=== PATIENT | male | born 1965 | race Caucasian/White ===

== ENCOUNTER 2017-03-23 05:14 | Inpatient (IN) | payer BC, OTHER ==
[2017-03-21 13:43] VITALS: BMI 35.0
--- NOTE | 2017-03-21 14:25 | PAT Medication Instructions ---
Service Date Mar 21, 2017. Current Home Medication List Acetaminophen/Codeine (Tylenol W/Codeine #3), 1-2 TAB PO Q4-6H Albuterol Sulfate (Proair Respiclick), 2 PUFFS INH PRN Aspirin (Aspirin Ec), 81 MG PO QAM Baclofen (Lioresal), 10 MG PO PRN Hydrocodone/Acetaminophen 5MG/325MG ([place] 5MG/325MG), 1 TABLET PO PRN PRN for Pain Hydrocodone/Acetaminophen 5MG/325MG ([place] 5MG/325MG), 1 TABLET PO Q6H PRN for N Loratadine (Claritin), 10 MG PO QAM Losartan Potassium (Cozaar), 50 MG PO QAM Magnesium Oxide (Mag-Ox), 400 MG PO BID Mometasone Furoate-Formoterol (Dulera 100/5 Mcg), 2 PUFFS INH BID Montelukast Sodium (Montelukast Sodium), 1 TAB PO QAM Multivitamin (Multivitamin), 1 TAB PO QAM Potassium Chloride (K-Tabs), 20 MEQ PO BID Medication Instructions For Your Scheduled Surgery - Last dose of Plavix was 03/18/17 per patient. Per patient, told by vascular that he no longer needs to be on Plavix indefinitely. - Hold the following medications the morning of surgery: Baclofen (Lioresal), 10 MG PO PRN Loratadine (Claritin), 10 MG PO QAM Losartan Potassium (Cozaar), 50 MG PO QAM Magnesium Oxide (Mag-Ox), 400 MG PO BID Montelukast Sodium (Montelukast Sodium), 1 TAB PO QAM Multivitamin (Multivitamin), 1 TAB PO QAM Potassium Chloride (K-Tabs), 20 MEQ PO BID - Take the following medications the morning of surgery with a sip of water: Mometasone Furoate-Formoterol (Dulera 100/5 Mcg), 2 PUFFS INH BID Hydrocodone/Acetaminophen 5MG/325MG ([place] 5MG/325MG), 1 TABLET PO PRN PRN for Pain (okay to take up to 4 hours prior to surgery if needed) Hydrocodone/Acetaminophen 5MG/325MG ([place] 5MG/325MG), 1 TABLET PO Q6H PRN for N (okay to take up to 4 hours prior to surgery if needed) Acetaminophen/Codeine (Tylenol W/Codeine #3), 1-2 TAB PO Q4-6H (okay to take up to 4 hours prior to surgery if needed) Albuterol Sulfate (Proair Respiclick), 2 PUFFS INH PRN (if needed) Aspirin (Aspirin Ec), 81 MG PO QAM (okay to continue per surgeon) - Take the following medications as scheduled the night before surgery: Potassium Chloride (K-Tabs), 20 MEQ PO BID Mometasone Furoate-Formoterol (Dulera 100/5 Mcg), 2 PUFFS INH BID Magnesium Oxide (Mag-Ox), 400 MG PO BID Hydrocodone/Acetaminophen 5MG/325MG ([place] 5MG/325MG), 1 TABLET PO PRN PRN for Pain (if needed) Hydrocodone/Acetaminophen 5MG/325MG ([place] 5MG/325MG), 1 TABLET PO Q6H PRN for N (if needed) Acetaminophen/Codeine (Tylenol W/Codeine #3), 1-2 TAB PO Q4-6H (if needed) Baclofen (Lioresal), 10 MG PO PRN (if needed) Albuterol Sulfate (Proair Respiclick), 2 PUFFS INH PRN (if needed) If you have any questions please call us at [phone] or [phone] or [phone]
--- NOTE | 2017-03-21 15:04 | DIAGNOSTIC IMAGING REPORT ---
CHEST 2 VIEWS ROUTINE HISTORY: Preop. COMPARISON: None. FINDINGS: The lungs are clear. Cardiac silhouette is normal in size. No pleural effusions. No pneumothorax. IMPRESSION: No acute process. Electronically signed by: Simone Villavicencio M.D. 03/21/2017 3:03 PM Dictated Date/Time: 03/21/2017 2:58 PM
[2017-03-21 15:34] LABS: BASO % 0.3 %; BASO ABS # 0.02 K/uL (0-0.2); EOS % 6.3 %; EOS ABS # 0.45 K/uL (0-0.5); HEMATOCRIT 44.4 % (42-52); HEMOGLOBIN 15.2 g/dL (14.0-18.0); IG# 0.02 K/uL (0.00-0.02); LYMPH ABS # 2.01 K/uL (1.2-3.4); MEAN CELL VOLUME 93.7 fL (80-100); MEAN CORPUSCULAR HEMOGLOBIN 32.1 pg (25-34); MEAN CORPUSCULAR HGB CONC 34.2 g/dl (32-36); MEAN PLATELET VOLUME 9.6 fL (7.4-10.4); MONO % 10.2 %; MONO ABS # 0.73 K/uL (0.11-0.59); NEUT % 54.9 %; NEUT ABS # 3.94 K/uL (1.4-6.5); PLATELET COUNT 312 K/uL (130-400); RED CELL DISTRIBUTION WIDTH CV 12.4 % (11.5-14.5); RED CELL DISTRIBUTION WIDTH SD 42.7 fL (36.4-46.3); WHITE BLOOD COUNT 7.17 K/uL (4.8-10.8)
[2017-03-21 15:45] LABS: INR 0.9 (0.9-1.1); PTT PATIENT 23.1 SECONDS (21.0-31.0)
[2017-03-21 16:41] LABS: ALBUMIN 3.7 gm/dl (3.4-5.0); CALCIUM 9.1 mg/dl (8.5-10.1); CREATININE 1.09 mg/dl (0.60-1.40); POTASSIUM 3.8 mmol/L (3.5-5.1)
[2017-03-21 16:42] LABS: TOTAL PROTEIN 7.7 gm/dl (6.4-8.2)
--- NOTE | 2017-03-22 14:24 | History and Physical ---
History & Physical Date Mar 22, 2017. Chief Complaint RIGHT FEMORAL NECK STRESS FRACTURE History of Present Illness The patient is a 51 year old male with complaints of right hip and back pain. Patient was being evaluated by his PCP earlier in February. He had an MRI of his hip which revealed a right femoral neck stress fracture. Patient has been non weightbearing and is now scheduled for percutaneous pinning of the right hip. He is currently on Plavix for renal stents and did take a dose on Monday , Dr. Beckett is aware. Patient is currently ambulating with crutches. He rates his pain a 6/10. Past Medical/Surgical History MVP HTN Hypercholesterolemia Sleep apnea, with cPAP Renal artery stenosis Renal artery stent Right shoulder x 2 Cholecystectomy ACDF Denies CAD, DM, DVT Additional History Hepatic Disease: No Endocrine Disorder: No Kidney Disease: No Hypertension: Yes Heart Disease: No Bleeding Tendencies: No Infectious Diseases: No Allergies Coded Allergies: Amoxicillin (Verified Allergy, Unknown, RASH, 03/21/17) Clavulanic Acid (Verified Allergy, Unknown, RASH, 03/21/17) Home Medications Scheduled Acetaminophen/Codeine (Tylenol W/Codeine #3), 1-2 TAB PO Q4-6H Albuterol Sulfate (Proair Respiclick), 2 PUFFS INH PRN Aspirin (Aspirin Ec), 81 MG PO QAM Baclofen (Lioresal), 10 MG PO PRN Loratadine (Claritin), 10 MG PO QAM Losartan Potassium (Cozaar), 50 MG PO QAM Magnesium Oxide (Mag-Ox), 400 MG PO BID Mometasone Furoate-Formoterol (Dulera 100/5 Mcg), 2 PUFFS INH BID Montelukast Sodium (Montelukast Sodium), 1 TAB PO QAM Multivitamin (Multivitamin), 1 TAB PO QAM Potassium Chloride (K-Tabs), 20 MEQ PO BID Scheduled PRN Hydrocodone/Acetaminophen 5MG/325MG ([place] 5MG/325MG), 1 TABLET PO PRN PRN for Pain Hydrocodone/Acetaminophen 5MG/325MG ([place] 5MG/325MG), 1 TABLET PO Q6H PRN for N Physical Examination Skin: warm/dry, no rash Eyes: normal inspection, EOMI, sclerae normal ENT: normal ENT inspection, pharynx normal Head: normocephalic, atraumatic Neck: supple, no adenopathy, trachea midline Respiratory/Chest: lungs clear, normal breath sounds, no respiratory distress Cardiovascular: regular rate, rhythm, no edema, no murmur Abdomen / GI: normal bowel sounds, non tender Back: normal inspection Extremities: normal inspection, + pertinent finding (ROM painful, no distal edema. NV intact, antalgic gait) Neurologic/Psych: no motor/sensory deficits, alert, normal reflexes, oriented x 3 Diagnosis RIGHT FEMORAL NECK STRESS FRACTURE. Plan of Treatment PATIENT WILL BE ADMITTED FOR PERCUTANEOUS PINNING RIGHT FEMORAL NECK. PATIENT HAS HISTORY OF NONCOMPLIANCE, WILL NEED CLOSE MONITORING AND EDUCATION POST OP. WILL NOT NEED TO RESUME PLAVIX. HE WAS INSTRUCTED BEFORE TO STOP ANTICOAGULATION BC IT HAS BEEN 6 MONTHS SINCE HIS STENT.
[~2017-03-23] VITALS: Ht 177.8 cm; Wt 110.8 kg
[2017-03-23] VITALS (8 sets, daily range): BP systolic 122–166; BP diastolic 64–93; PULSE 56–78; TEMP 36.7–36.8; O2SAT 95–98; Ht 177.8 cm; Wt 110.8 kg
[~2017-03-23 05:14] MED LIST: ACET300T3 PO; ALBU18002 INH; ASPI81TA28 PO; BACL10TA PO; CLR10 PO; HYDR-5688 PO; LOSA50TA6 PO; MAGN400T6 PO; MOME100A INH; MONT1TAB5 PO; MULT-506 PO; POTA10TA PO
[2017-03-23] MEDS ORDERED: ACETAMINOPHEN 500 MG TAB PO SCH (06:00)
[2017-03-23] MEDS ORDERED: CeleBREX 200 MG CAP PO SCH (06:00)
[2017-03-23] MEDS ORDERED: CEFAZOLIN 2000MG IV PUSH 10 ML IV SCH (06:00)
[2017-03-23] MEDS ORDERED: LACTATED RINGER'S 1000ML 1,000 ML IV SCH (06:00)
[2017-03-23] MEDS ORDERED: METOCLOPRAMIDE HCL 10 MG TAB PO SCH (06:00)
[2017-03-23] MEDS ORDERED: DEXAMETHASONE 4 MG TAB PO SCH (06:00)
[2017-03-23] MEDS ORDERED: CLOP1TAB15 PO (06:05)
[2017-03-23] MEDS ORDERED: BUPIVACAINE 0.5 % 5 MG/1 ML PF 10ML VIAL ONE (06:29)
[2017-03-23] MEDS ORDERED: BUPIVACAINE 0.5 % 5 MG/1 ML MPF 30ML VIAL ONE (06:32)
[2017-03-23] MEDS ORDERED: FENTANYL CITRATE INJ 50 MCG/1 ML 2 ML VIAL ONE ×2 (06:42→07:46)
[2017-03-23] MEDS ORDERED: MIDAZOLAM HCL 1 MG/ML 2ML VIAL ONE (06:42)
--- NOTE | 2017-03-23 06:48 | History & Physical Bridge Note ---
H&P Re-Evaluation Bridge Note: I have examined the patient, reviewed the History & Physical and in the interval since the performance of the History & Physical I have noted the following changes of clinical significance: No changes noted
[2017-03-23] MEDS ORDERED: ATROPINE SULFATE 0.1 MG/ML 5ML SYR IV PRN (07:00)
[2017-03-23] MEDS ORDERED: LABETALOL HCL IV 5 MG/ML 20ML IV PRN (07:00)
[2017-03-23] MEDS ORDERED: KETOROLAC TROMETHAMINE 30 MG/ML VIAL IV. PRN (07:00)
[2017-03-23] MEDS ORDERED: ONDANSETRON INJ 2 MG/ML 2 ML VIAL IV PRN ×2 (07:00→08:30)
[2017-03-23] MEDS ORDERED: GLYCOPYRROLATE INJ 0.2 MG/ML VIAL ONE (07:45)
[2017-03-23] MEDS ORDERED: ONDANSETRON INJ 2 MG/ML 2 ML VIAL ONE (07:45)
[2017-03-23] MEDS ORDERED: NEOSTIGMINE METHYLSULFATE 5 MG/5 ML SYR ONE (07:45)
[2017-03-23] MEDS ORDERED: PROPOFOL IV EMULSION 10 MG/ML 20 ML VIAL IV ONE (07:45)
[2017-03-23] MEDS ORDERED: DEXAMETHASONE SOD INJ 4 MG/ML VIAL ONE (07:45)
[2017-03-23] MEDS ORDERED: LIDOCAINE HCL 2% 2 ML VIAL (20MG/ML) ONE (07:45)
[2017-03-23] MEDS ORDERED: ROCURONIUM BROMIDE 10 MG/ML 5 ML VIAL IV ONE (08:19)
--- NOTE | 2017-03-23 08:27 | [facility] Post Operative Brief Note ---
Immediate Operative Summary Operative Date Mar 23, 2017. Pre-Operative Diagnosis Fracture Neck of Right Femur Post-Operative Diagnosis Same as preop Procedure(s) Performed Right Hip Percutaneous Pinning Surgeon Dr. Beckett Surgery Aid Surgeon(s) none Estimated Blood Loss 25 ML Findings see dictated op note Fluids (cc crystalloids) 1200 Specimens None per Surgeon Drains none Anesthesia general Complication(s) None Disposition Recovery Room / PACU
[2017-03-23] MEDS ORDERED: NON-FORMULARY MEDICATION (Albuterol Sulfate (Proair Respiclick) 2 PUFFS) INH SCH (08:30)
[2017-03-23] MEDS ORDERED: OXYCODONE HCL IR 5 MG TAB (IMMEDIATE RELEASE) PO PRN (08:30)
[2017-03-23] MEDS ORDERED: MoRPHine SULFATE 4 MG/ML 1 ML CARP\\VIAL IV PRN (08:30)
[2017-03-23] MEDS: HYDROmorphone INJ 1 MG/ML SYR IV PRN ×2 (09:01→09:09)
--- NOTE | 2017-03-23 09:03 | DIAGNOSTIC IMAGING REPORT ---
R PELVIS/UNILATERAL HIP 1 VIEW CLINICAL HISTORY: IN PACU - A/P PELVIS and LATERAL HIP INCLUDING ALL OF IMPLANT COMPARISON: None. DISCUSSION: Anatomic alignment status post right hip pinning. 3 hip pins appear to be placed appropriately. There is no evidence for soft tissue swelling. IMPRESSION: Anatomic alignment status post right hip pinning The above report was generated using voice recognition software. It may contain grammatical, syntax or spelling errors. Electronically signed by: David Chen M.D. 03/23/2017 9:02 AM Dictated Date/Time: 03/23/2017 9:00 AM
--- NOTE | 2017-03-23 09:42 | DIAGNOSTIC IMAGING REPORT ---
R HIP OR FILMS CLINICAL HISTORY: RT PERCUTANEOUS PINNING. Right hip fracture. COMPARISON STUDY: None. FLUOROSCOPY TIME: 1 minute and 59 seconds. FINDINGS: 2 fluoroscopic spot images of the right hip demonstrate 3 cannulated screws within the right femoral neck. The hardware is intact. The alignment is anatomic. IMPRESSION: Fluoroscopy provided for right hip pinning. Electronically signed by: Simone Villavicencio M.D. 03/23/2017 9:40 AM Dictated Date/Time: 03/23/2017 9:40 AM
--- NOTE | 2017-03-23 10:56 | Anesthesiology Progress Note ---
Anesthesia Post Op Note Date & Time Mar 23, 2017 at 10:56 Vital Signs Pain Intensity: 4 Vital Signs Past 12 Hours Date Time Temp Pulse Resp B/P (MAP) Pulse Ox O2 Delivery O2 Flow Rate FiO2 03/23/17 10:40 67 18 146/84 (104) 98 Nasal Cannula 2.0 03/23/17 10:10 56 16 146/93 (110) 97 Nasal Cannula 2.0 03/23/17 09:25 36.4 48 12 112/76 96 Nasal Cannula 2 03/23/17 09:15 47 13 130/82 97 Nasal Cannula 2 03/23/17 09:05 48 14 132/83 97 Nasal Cannula 2 03/23/17 08:55 54 16 111/95 97 Oxymask 10 03/23/17 08:45 47 18 147/75 100 Oxymask 10 03/23/17 08:37 36.1 60 20 128/93 100 Oxymask 10 03/23/17 05:49 36.7 60 18 166/92 97 Room Air Notes Mental Status: alert / awake / arousable, participated in evaluation Pt Amnestic to Procedure: Yes Nausea / Vomiting: adequately controlled Pain: adequately controlled Airway Patency, RR, SpO2: stable & adequate BP & HR: stable & adequate Hydration State: stable & adequate Anesthetic Complications: no major complications apparent
--- NOTE | 2017-03-23 11:26 | Orthopedic Progress Note ---
Orthopedic Progress Note Date of Service Mar 23, 2017. Subjective Additional Notes: Postop progress note Patient doing well, comfortable, pain well controlled, no acute issues. Objective Right lower extremity NVSI, positive EHL/FHL/TA/GS, SILT grossly, dressing clean dry and intact, compartments soft nontender. SCDs in place. Date Time Temp Pulse Resp B/P (MAP) Pulse Ox O2 Delivery O2 Flow Rate FiO2 03/23/17 10:40 67 18 146/84 (104) 98 Nasal Cannula 2.0 03/23/17 10:10 56 16 146/93 (110) 97 Nasal Cannula 2.0 03/23/17 09:25 36.4 48 12 112/76 96 Nasal Cannula 2 03/23/17 09:15 47 13 130/82 97 Nasal Cannula 2 03/23/17 09:05 48 14 132/83 97 Nasal Cannula 2 03/23/17 08:55 54 16 111/95 97 Oxymask 10 03/23/17 08:45 47 18 147/75 100 Oxymask 10 03/23/17 08:37 36.1 60 20 128/93 100 Oxymask 10 03/23/17 05:49 36.7 60 18 166/92 97 Room Air Assessment & Plan Assessment: S/P percutaneous pinning of the right hip -Ancef x 24 -DVT ppx - restart patients home plavix -PWB RLE with crutches/walker -PT/OT --Pain controlled -DC planing - Home POD1 -PO XR - implants well aligned, well fixed, no new fractures or dislocation
[2017-03-23] MEDS: LOSARTAN POTASSIUM 50 MG TAB PO SCH (11:40)
[2017-03-23] MEDS: MULTIVITAMIN TAB PO SCH (11:42)
[2017-03-23] MEDS ORDERED: CLB200 PO (11:47)
[2017-03-23] MEDS ORDERED: SENN-61 PO (11:47)
[2017-03-23] MEDS ORDERED: ONDA-170 PO (11:47)
[2017-03-23] MEDS ORDERED: ASPEC325 PO ×2 (11:47→11:50)
[2017-03-23] MEDS ORDERED: RXC5 PO (11:47)
[2017-03-23] MEDS ORDERED: ACET-24 PO (11:47)
--- NOTE | 2017-03-23 11:49 | Discharge Instructions ---
Discharge Instructions Date of Service Mar 23, 2017. Admission Reason for Admission: Fracture Of Unspecified Part Of Neck Of Right Femu Discharge Discharge Diagnosis / Problem: sp percutaneous pinning right femur Discharge Goals Goal(s): Decrease discomfort, Improve function, Increase independence Activity Recommendations Activity Limitations: per Instructions/Follow-up section . Instructions / Follow-Up Instructions / Follow-Up [facility] DISCHARGE INSTRUCTIONS: HIP FRACTURE SELF CARE INSTRUCTIONS: A. You are to ambulate with a walker or crutches for approximately 6 weeks. B. You are 50% PARTIAL WEIGHT BEARING on your operative lower extremity for at least 6 weeks. C. Wear low heeled shoes with non-slip soles D. Be sure that your floors are free of things that could trip you throw rugs, electrical cords, and small objects. Avoid wet and waxed floors, especially with crutches/walker/cane. E. Try to walk several times a day with rest periods between. F. You may shower 48 hours after surgery and get the incision area wet, but DO NOT soak or submerge incision area in water. (No baths, swimming pools, hot tubs ) G. Standard alia/no adhesive- Please keep incision clean and dry. You may shower. [place] should be removed in 10-14 days at the office. This appointment is likely already scheduled for you. Please call if any increased redness, drainage, or swelling. H. Do NOT apply soap or any ointment/lotions directly over incision. I. You may use ice as needed to operative site. SPECIAL CARE INSTRUCTIONS: VERY IMPORTANT TO READ AND REVIEW A. You may be at risk for phlebitis or blood clots. a. Wear surgical stockings (SIVA hose) for 2 weeks after surgery to improve circulation and reduce swelling. b. Take ASPIRIN 325 mg BID for 4 weeks or as directed. This is your blood thinner. c. If you are on Coumadin- you will have daily/weekly blood work to monitor your levels. This will be done by either your family physician/ director pharmacy services (if you are on Coumadin chronically) versus your orthopedic surgeon. Expect a phone call the day of or the day after your blood work is drawn to adjust your dose accordingly. B. There are a few signs you need to watch for after you are home. Call [facility] [place] at [phone] if you experience any of the following: a. If you have a temperature of 101 degrees or higher. b. Sudden increase in pain in your hip not relieved by rest or pain medication. c. Any fluid or drainage from the incision; redness of the incision. d. Shortness of breath or chest pain. B. Please call [facility] at [phone] if you have any questions or concerns about your operation or recovery. C. Call your physician if: a. Temperature is greater than 101 degrees (F). b. Pain is not relieved by prescribed pain medications. c. Increase drainage or redness from incision. d. Unanswered questions or concerns. D. Pain Medication: a. You will be prescribed pain medication upon discharge that should last till your first post-operative appointment. b. If you experience nausea and/or skin rash, discontinue this medication and contact our office for an alternative medication. c. Caution- narcotic pain medication can cause constipation. FOLLOW UP VISIT: Please call [facility] at [phone] to schedule a follow up appointment 10-14 days from the date of your surgery date. Current Hospital Diet Patient's current hospital diet: Regular Diet Discharge Diet Recommended Diet: Regular Diet Procedures Procedures Performed: Right Hip Percutaneous Pinning Pending Studies Studies pending at discharge: no Medical Emergencies . Who to Call and When: Medical Emergencies: If at any time you feel your situation is an emergency, please call 911 immediately. . Non-Emergent Contact Non-Emergency issues call your: Surgeon . "Provider Documentation" section prepared by Marsha Euceda. . VTE Core Measure Inpt VTE Proph given/why not?: Other Anticoagulation, T.E.D. Stockings, SCD's
[2017-03-23] MEDS: SODIUM CHLORIDE 0.9% 1000ML 1,000 ML IV SCH ×2 (13:10→23:50)
[2017-03-23] MEDS: CEFAZOLIN IV 2,000 MG in SYRINGE 0 ML IV SCH ×2 (13:39→21:57)
[2017-03-23] MEDS ORDERED: NURSING VERBAL MED ORDER ONE ×2 (14:00→21:15)
[2017-03-23] MEDS ORDERED: CEFAZOLIN IV 2,000 MG in DEXTROSE 5% 50ML 50 ML IV SCH (14:00)
[2017-03-23] MEDS: ACETAMINOPHEN 500 MG TAB PO SCH ×2 (15:33→23:52)
--- NOTE | 2017-03-23 16:56 | [facility] Operative Report ---
Operative Report Operative Date Mar 23, 2017. Pre-Operative Diagnosis Fracture Neck of Right Femur Post-Operative Diagnosis Same as preop Procedure(s) Performed Right Hip Percutaneous Pinning Surgeon Dr. Beckett Refrigerator Tester Surgeon(s) none Estimated Blood Loss 25 ML Findings see dictated op note Fluids 1200 Specimens None per Surgeon Drains none Anesthesia general Complication(s) None Disposition Recovery Room / PACU Indications The patient is a 51-year-old male who sustained a mechanical fall from standing height 3 weeks prior to admission and subsequently was seen for delayed presentation for right hip femoral neck stress fracture in the outpatient setting. I indicated the patient for a right hip percutaneous pinning. The patient was informed of the risks and benefits of surgery, which included but not limited to infection, bleeding, blood clots, damage to nerves, vessels, bone and soft tissue, dislocation, leg length discrepancy, need for additional surgery, nonunion, malunion, displacement of the fracture and . The patient chose to move forward with surgical intervention and informed consent was obtained. Description of Procedure The patient was identified, brought to the operating room, and placed in supine position on the table. After induction of general anesthesia, the patient was positioned on a fracture table. Imaging was obtained utilizing C-arm fluoroscopy of the right hip to assess hip position and version. No reduction was needed. The right hip was then sterilely prepped and draped in the usual fashion for the surgery. A timeout was performed with site cooper confirmation and preoperative antibiotics given. Once again under C-arm fluoroscopy a guide pin was inserted percutaneously and positioned in the inferior neck and femoral head while assessed in both the AP and lateral planes. When satisfactory position was confirmed a small direct lateral incision of the right hip around the guide pin was made. Dissection was carried down to the femur through the IT band and the vastus lateralis was elevated off the bone. Adequate hemostasis was achieved with electrocautery. Next under direct visualization with C-arm fluoroscopy we then used the pin guide to place two additional pins in the anterior superior and posterior superior positions. Each guide pin was measured for appropriate screw length and overdrilled using the cannulated drill bit while utilizing C-arm fluoroscopy to confirm no pin migration had occurred. Three 7.3 16 thread cannulated screws measure 110, 95 and 100mm were then placed under C-arm fluoroscopy into the femoral head with excellent fixation. The guide pins were removed at this time and final images were obtained utilizing C-arm fluoroscopy. Once this was done and the fixation was solid, the wound was irrigated with copious amounts of sterile saline solution. We then closed in layers using 1 Vicryl, 2-0 Vicryl, and alia for the skin. Sterile xeroform, 4x4, tegaderm dressing was applied. The patient was extubated in the OR , tolerated the procedure well and was taken to the PACU in stable condition. I attest to the content of the Intraoperative Record and any orders documented therein. Any exceptions are noted below.
[2017-03-23] MEDS: ASPIRIN 325 MG ECTAB PO SCH (20:54)
[2017-03-23] MEDS: DOCUSATE SODIUM 100 MG CAP PO SCH (20:54)
[2017-03-23] MEDS: POTASSIUM CHLORIDE 20 MEQ TABCR PO SCH (20:54)
[2017-03-23] MEDS: OXYCODONE HCL 10 MG TABCR (OXYCONTIN) PO SCH (20:55)
[2017-03-23] MEDS ORDERED: SENNA 8.6 MG TAB PO SCH (21:00)
[2017-03-24 03:19] VITALS: BP 125/71; PULSE 57; TEMP 36.7; O2SAT 97
[2017-03-24 05:47] LABS: BASO % 0.1 %; BASO ABS # 0.01 K/uL (0-0.2); HEMATOCRIT 36.7 % (42-52); HEMOGLOBIN 12.4 g/dL (14.0-18.0); IG# 0.07 K/uL (0.00-0.02); LYMPH % 7.8 %; LYMPH ABS # 1.47 K/uL (1.2-3.4); MEAN CELL VOLUME 95.8 fL (80-100); MEAN CORPUSCULAR HEMOGLOBIN 32.4 pg (25-34); MEAN CORPUSCULAR HGB CONC 33.8 g/dl (32-36); MEAN PLATELET VOLUME 9.5 fL (7.4-10.4); MONO % 7.8 %; MONO ABS # 1.47 K/uL (0.11-0.59); NEUT % 83.9 %; NEUT ABS # 15.93 K/uL (1.4-6.5); PLATELET COUNT 254 K/uL (130-400); RED CELL DISTRIBUTION WIDTH CV 12.8 % (11.5-14.5); RED CELL DISTRIBUTION WIDTH SD 43.9 fL (36.4-46.3); WHITE BLOOD COUNT 18.95 K/uL (4.8-10.8)
[2017-03-24 06:32] LABS: CALCIUM 8.7 mg/dl (8.5-10.1); CREATININE 1.26 mg/dl (0.60-1.40); POTASSIUM 4.4 mmol/L (3.5-5.1)
[2017-03-24] MEDS: SODIUM CHLORIDE 0.9% 1000ML 1,000 ML IV SCH (06:46)
--- NOTE | 2017-03-24 06:51 | Orthopedic Progress Note ---
Orthopedic Progress Note Date of Service Mar 24, 2017. Subjective Additional Notes: Patient seen in bed this morning, comfortable, denies pain, denies F/V/N/V/SOB/ CP, no acute issues overnight Objective Right lower extremity NVSI, positive EHL/FHL/TA/GS, SILT grossly, dressing clean dry and intact, compartments soft nontender. SCDs in place. Date Time Temp Pulse Resp B/P (MAP) Pulse Ox O2 Delivery O2 Flow Rate FiO2 03/24/17 03:19 36.7 57 16 125/71 (89) 97 Room Air 03/23/17 23:30 Room Air 03/23/17 23:07 36.8 61 14 134/73 (93) 97 Room Air 03/23/17 19:15 36.8 78 18 122/64 (83) 95 Room Air 03/23/17 15:33 Room Air 03/23/17 14:38 36.8 76 16 157/75 (102) 95 Room Air 03/23/17 12:40 69 16 143/80 (101) 97 Room Air 03/23/17 11:38 36.7 68 12 152/93 (112) 96 Room Air 03/23/17 10:40 67 18 146/84 (104) 98 Nasal Cannula 2.0 03/23/17 10:10 56 13 146/93 (110) 97 Nasal Cannula 2.0 03/23/17 10:10 56 16 146/93 (110) 97 Nasal Cannula 2.0 03/23/17 09:40 Nasal Cannula 2.0 03/23/17 09:40 Nasal Cannula 03/23/17 09:25 36.4 48 12 112/76 96 Nasal Cannula 2 03/23/17 09:15 47 13 130/82 97 Nasal Cannula 2 03/23/17 09:05 48 14 132/83 97 Nasal Cannula 2 03/23/17 08:55 54 16 111/95 97 Oxymask 10 03/23/17 08:45 47 18 147/75 100 Oxymask 10 03/23/17 08:37 36.1 60 20 128/93 100 Oxymask 10 Laboratory Results 24 Hours: Test 03/24/17 05:19 White Blood Count 18.95 K/uL Red Blood Count 3.83 M/uL Hemoglobin 12.4 g/dL Hematocrit 36.7 % Mean Corpuscular Volume 95.8 fL Mean Corpuscular Hemoglobin 32.4 pg Mean Corpuscular Hemoglobin Concent 33.8 g/dl Platelet Count 254 K/uL Mean Platelet Volume 9.5 fL Neutrophils (%) (Auto) 83.9 % Lymphocytes (%) (Auto) 7.8 % Monocytes (%) (Auto) 7.8 % Eosinophils (%) (Auto) 0.0 % Basophils (%) (Auto) 0.1 % Neutrophils # (Auto) 15.93 K/uL Lymphocytes # (Auto) 1.47 K/uL Monocytes # (Auto) 1.47 K/uL Eosinophils # (Auto) 0.00 K/uL Basophils # (Auto) 0.01 K/uL Prothromb Time International Ratio 1.0 Prothrombin Time 10.2 SECONDS Assessment & Plan Assessment: S/P percutaneous pinning of the right hip POD#1 -Ancef x 24 -DVT ppx - restart patients home plavix -PWB RLE with crutches/walker, 50% weight bearing -PT/OT --Pain controlled -Am labs HGB 12.4 -DC planing - Home today 03/24/17 -PO XR - implants well aligned, well fixed, no new fractures or dislocation
[2017-03-24 07:19] VITALS: BP 144/84; PULSE 56; TEMP 36.7; O2SAT 95
--- NOTE | 2017-03-24 07:53 | NUR ---
Case Management: Met with pt at bedside. Pt reports he lives with his who is able to assist him at home. Pt reports being independent with ADLs and ambulation. States he used crutches prior to this admission and plans to use crutches on discharge. When I asked pt his home set up he reports he owns four homes and he goes between all four homes. I asked the home set up of the home he plans to stay upon discharge and pt was uncertain which home. Reports homes are two story and he can access home without steps. Reports he can remain on the first floor in his homes. Pt denies discharge needs. Case Management to follow.
--- NOTE | 2017-03-24 08:13 | Anesthesiology Progress Note ---
Anesthesia Post Op Note Date & Time Mar 24, 2017 at 08:12 Vital Signs Pain Intensity: 0.0 Vital Signs Past 12 Hours Date Time Temp Pulse Resp B/P (MAP) Pulse Ox O2 Delivery O2 Flow Rate FiO2 03/24/17 07:19 36.7 56 18 144/84 (104) 95 Room Air 03/24/17 03:19 36.7 57 16 125/71 (89) 97 Room Air 03/23/17 23:30 Room Air 03/23/17 23:07 36.8 61 14 134/73 (93) 97 Room Air Notes Mental Status: alert / awake / arousable, participated in evaluation Pt Amnestic to Procedure: Yes Nausea / Vomiting: adequately controlled Pain: adequately controlled Airway Patency, RR, SpO2: stable & adequate BP & HR: stable & adequate Hydration State: stable & adequate Anesthetic Complications: no major complications apparent
[2017-03-24] MEDS: DOCUSATE SODIUM 100 MG CAP PO SCH (08:35)
[2017-03-24] MEDS: ACETAMINOPHEN 500 MG TAB PO SCH (08:35)
[2017-03-24] MEDS: ASPIRIN 325 MG ECTAB PO SCH (08:36)
[2017-03-24] MEDS: LOSARTAN POTASSIUM 50 MG TAB PO SCH (08:36)
[2017-03-24] MEDS: MULTIVITAMIN TAB PO SCH (08:37)
[2017-03-24] MEDS: POTASSIUM CHLORIDE 20 MEQ TABCR PO SCH (08:37)
[2017-03-24] MEDS: OXYCODONE HCL 10 MG TABCR (OXYCONTIN) PO SCH (08:38)
[2017-03-24 08:51] VITALS: BP 144/84; PULSE 56; TEMP 36.7; O2SAT 95
[2017-03-24] MEDS ORDERED: CLOPIDOGREL BISULFATE 75 MG TAB PO SCH (09:00)
[2017-03-24] MEDS ORDERED: APIXABAN 2.5 MG TAB PO SCH (09:00)
--- NOTE | 2017-03-24 10:35 | NUR ---
The patient has demonstrated progress toward goals and readiness for discharge as demonstrated by: A&O x4. VSS. RA. OOB independently to bathroom- voiding without difficulty in urinal. Tolerating a regular diet. Ambulating in hallways with use of crutches- patient is to be 50% weight-bearing on right leg; no compliant with weight bearing status. "I have been walking on this leg (right leg) for weeks; I will be fine" Patient escorted to car with a volunteer to be discharged. Able to shower independently. 4x4r with opsite to right thigh. discharge plans are to go home; patient is to follow-up with out patient PT.
--- NOTE | 2017-03-31 08:17 | DISCHARGE SUMMARY ---
DISCHARGE DIAGNOSIS: Stress fracture, right femoral neck. SECONDARY DIAGNOSES: Hypertension and obesity. CONSULTS: None. COMPLICATIONS: None. PROCEDURE: The patient underwent a prophylactic percutaneous pinning of the right femur with Dr. Beckett on 03/23/2017. BRIEF HISTORY: Please see previously dictated history and physical. HOSPITAL COURSE: The patient was admitted on 03/23/2017 for a percutaneous pinning of his right femoral neck fracture. The patient tolerated the procedure well. He was resting comfortably postoperatively. Vital signs were stable. He was afebrile. Dressings were clean, dry and intact. He was neurovascularly intact. Calves were soft and nontender. SCDs were in place. On postop day #1, the patient was doing well. He was resting comfortably in his bed. He denies pain. Vital signs were stable. He was afebrile. Dressing was clean, dry and intact. He was neurovascularly intact. Calves were soft and nontender. SCDs were in place. The patient's hemoglobin was 12.4. He began physical therapy per protocol. He was started on aspirin 325 mg b.i.d. for DVT prophylaxis. He is 50% weightbearing with crutches versus walker. He was discharged home with home physical therapy later that day in stable condition. For further review please see the chart. Lab, x-ray data and discharge instructions as per chart.
[2017-09-02] MEDS ORDERED: IBUP-1450 PO (10:33)
[2017-09-02] MEDS ORDERED: LANS30CA12 PO (10:33)
[2017-09-02] MEDS ORDERED: DOCU100C31 PO (10:33)
[2017-09-02] MEDS ORDERED: MOME100A INH (10:33)
[2017-09-02] MEDS ORDERED: PROM12.57 PO (10:33)
[2017-09-02] MEDS ORDERED: ASPI81CH2 PO (10:33)
[2017-09-02] MEDS ORDERED: ATOR-26 PO (10:33)
[2017-09-04] MEDS ORDERED: ATV5 PO (13:09)
[2017-09-04] MEDS ORDERED: ANT25 PO (13:09)
== END 2017-03-24 10:39 | disposition home or self-care (01) | DRG 482 ==
LOC: C.ACU 05:14 → EEVIPCON 05:14 → C.3E 08:37 → ENRESERV 09:13
PROVIDERS: ADMIT Orthopaedic Surgery; ATTEND Orthopaedic Surgery
PROC: 0QH634Z Insertion of Internal Fixation Device into Right Upper Femur, Percutaneous Approach (ICD-10-PCS; principal; 2017-03-23 07:00)
DX: M84.351A Stress fracture, right femur, initial encounter for fracture (principal); W18.30XA Fall on same level, unspecified, initial encounter; I10 Essential (primary) hypertension; G47.33 Obstructive sleep apnea (adult) (pediatric); J45.909 Unspecified asthma, uncomplicated; E66.9 Obesity, unspecified; Z68.35 Body mass index [BMI] 35.0-35.9, adult; Z95.820 Peripheral vascular angioplasty status with implants and grafts; Z87.891 Personal history of nicotine dependence; Z79.02 Long term (current) use of antithrombotics/antiplatelets; Z79.82 Long term (current) use of aspirin; Z79.891 Long term (current) use of opiate analgesic; Z79.899 Other long term (current) drug therapy; Z88.0 Allergy status to penicillin

== ENCOUNTER 2022-11-14 13:48 | Inpatient (IN) ==
[2022-11-14 16:26] LABS: Basophils # (auto) 0.03 K/uL (0-0.2); Basophils % (auto) 0.4 %; Eosinophils # (auto) 0.44 K/uL (0-0.50); Eosinophils % (auto) 5.1 %; Hematocrit (blood only) 45.2 % (42.0-52.0); Hemoglobin 15.4 g/dl (14.0-18.0); Immature Granulocytes # (auto) 0.02 K/uL (0.01-0.20); Immature Granulocytes % (auto) 0.2 %; Lymphocytes # (auto) 2.48 K/uL (1.2-3.4); Mean Corpuscular Hemoglobin 31.7 pg (25.0-34.0); Mean Corpuscular Hgb Conc 34.1 g/dL (32.0-36.0); Mean Platelet Volume 9.3 fL (9.4-12.4); Monocytes # (auto) 0.99 K/uL (0.11-0.59); Monocytes % (auto) 11.6 %; Neutrophils % (auto) 53.7 %; Platelet Count 296 K/uL (130-400); RDW Coefficient of Variation 13.3 % (11.5-14.5); RDW Standard Deviation 44.8 fL (36.4-46.3); Red Blood Count 4.86 M/uL (4.70-6.10); White Blood Count 8.56 K/ul (4.8-10.8)
--- NOTE | 2022-11-14 16:33 | XRay Report ---
XR chest 1V portable HISTORY: 57 years-old Male Chest pain, nonspecific acute chest pain COMPARISON: 05/09/2022 TECHNIQUE: AP view of the chest FINDINGS: Cardiac mediastinal and hilar silhouettes are within normal limits. No pneumothorax, pleural effusion , airspace consolidation or overt pulmonary edema. A loop recorder device is again noted. Unchanged m ild right hemidiaphragmatic elevation. Degenerative changes of the shoulders and spine. Surgical clip s of the upper abdomen. Postoperative changes of the right humeral head with fusion hardware of the l umbar and cervical spine. IMPRESSION: No acute process. ACT 112: Negative or not required by law. The above report was generated using voice recognition software. It may contain grammatical, syntax o r spelling errors. Electronically signed by: Faisal Saunders M.D. 11/14/2022 4:31 PM
[2022-11-14 16:50] LABS: Albumin Globulin Ratio 1.3 (0.9-2); Albumin Level 4.3 gm/dl (3.4-5.0); Bilirubin,Total 0.5 mg/dl (0.2-1.0); Calcium 9.3 mg/dl (8.6-10.3); Creatinine Clr Calc Pharmacy 93.8 ml/min; Est GFR (Non-African American) 69.1 ml/min; Globulin 3.4 gm/dl (2.5-4.0); Potassium 4.1 mmol/L (3.5-5.1); Total Protein 7.7 gm/dl (6.0-8.3)
[2022-11-14 16:56] LABS: Troponin I High Sensitivity 6.4 pg/ml (0-20)
[2022-11-14 17:12] LABS: INR 0.9 (0.9-1.1); Partial Thromboplastin Ratio 0.9; Partial Thromboplastin Time 25.1 Seconds (21.0-31.0); Prothrombin Time 10.3 Seconds (9.0-12.0)
[2022-11-14] MEDS ORDERED: LORazepam 2 MG/1 ML VIAL IV STA (20:11)
[2022-11-14] MEDS ORDERED: SODIUM CHLORIDE 0.9% 1000ML 1,000 ML IV ONE (20:11)
--- NOTE | 2022-11-14 20:30 | Emergency Department Note ---
Impression & Plan Vertigo, central, Occlusion of right vertebral artery ED Provider Note HISTORY OF PRESENT ILLNESS: Patient is a 57-year-old male presenting with dizziness. He reports he has a history of vertigo and Mnire's disease. He reports that this morning since he has gotten up every time he tries to get up from seated, he becomes very dizzy as if the room is spinning. He reports he has had constant tinnitus in his left ear for the last 24 hours. He reports that also with his dizziness this morning he develops chest pain, diaphoresis and shortness of breath. He reports he had a low-grade fever yesterday. He states that he had bilateral leg swelling yesterday. He is still complaining of on arrival to the ER. He reports every time he moves his head or stands up he becomes dizzy as if the room is spinning. He reports some associated nausea. He took meclizine and 0.5 mg of lorazepam in the waiting room while waiting a bed in the ER, without relief of symptoms. He denies any recent falls or head injury. Denies any chiropractic manipulation of his neck. Patient reports a history of PEs and is on anticoagulation. ROS: as above PHYSICAL EXAM: Constitutional: Patient appears in no acute distress. HENT: Head: Normocephalic and atraumatic. Eyes: EOMI, PERRL Mouth/Throat: Mucous membranes moist. Neck: Trachea midline. Neck supple. Cardiovascular: RRR, No murmurs, rubs or gallops. Intact distal pulses. Pulmonary/Chest: No respiratory distress. Breath sounds clear and equal bilaterally. No wheezes or rales. No chest wall tenderness to palpation. Abdominal: Abdomen soft, no tenderness, rebound or guarding. Musculoskeletal: No edema, tenderness or deformity noted. Skin: Warm and dry. No rash, erythema, pallor or cyanosis Psychiatric: Appropriate mood and affect for situation. Neurological: Alert and keenly responsive. CN II-XII grossly intact, moving all extremities equally and fully. Patient reports dizziness when moving his eyes in the lateral direction. No reproducible nystagmus. MDM: - Vitals signs showed hypertension - History obtained via patient. Patient presents with persistent dizziness. Patient reports that since this morning getting up he has had multiple episodes of dizziness described as the room spinning. He reports a history of Mnire's disease but reports that this dizziness is more intense and is lasting longer. He took oral lorazepam and meclizine earlier today without any relief of symptoms. He reports anytime he moves his head either way or stands up he gets dizzy. Reports that earlier today he had some chest pressure and diaphoresis with the dizziness. He reports a history of PEs and is on anticoagulation. - Chronic conditions affecting care: Chiari malformation; HLD; HTN; CKD; Meniere's disease; renal artery stenosis - Differential diagnoses include, but are not limited to: PE; ACS; electrolyte abnormality; CVA; central vertigo - Order placed for continuous cardiac monitoring. At this time, monitor showed rate of 60 bpm with normal sinus rhythm, per my interpretation. - External medical records reviewed. - EKG reviewed by myself showed normal sinus rhythm. Rate 67 bpm. QTc 433. No acute ischemic changes - Laboratory workup interpreted by myself showed normal WBC; stable electrolytes; normal troponin; negative dimer - CXR negative for pneumonia, per my interpretation - CT head wo contrast negative for acute pathology. - CTA head/neck showed occlusion of the right vertebral artery from its origin. - Discussed case with telestroke physician at [facility], Dr. Castillo at 21:33. Patient is outside of the window for any TNK interventions at this time. He recommended an MRI of the brain and starting the patient on 81 mg aspirin daily, given that he is already on anticoagulation therapy. - Patient was given 1L NS and 0.5 mg IV ativan for dizziness symptoms. - Discussion was had with adoption social worker about patient's case and need for admission - Hospitalist, Dr. Boss, consulted for admission - Patient admitted to [facility] Hospitalist service for further evaluation and management. ASSESSMENT AND PLAN: Diagnosis: central vertigo; occlusion of right vertebral artery Plan: admit Past Med/Surg History Medical History (Updated 11/14/22 @ 22:37 by Ena Hernandez MD) Asthma rescue inhaler use-most days with any activity Chiari malformation pt declined surgical intervention History of COVID-19 02/2022- fever, cough, sore throat, fatigue, covid pneumonia > resolved Hyperlipidemia Hypertension controlled, stable per pt Implantable loop recorder present Placed 2 yrs ago Follows with Dr. Hook Kidney disease "Late stage 3-chronic kidney failure" Follows with Dr. 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 Caban History of hip surgery Right hip percutaneous pinning (03/23/17): Easy, atraumatic intubation, Elective Glidescope#3, ETT 7.5 at [facility]. No issues noted per post-op anesthesia progress note. History of nasal septoplasty with turbinate reduction-11/26/21-Dr. Caban History of neck surgery anterior decompression-fusion, pt unsure of levels History of rotator cuff surgery x 2 right both S/P cardiac cath Approximately 06/01/21 ([facility]) > "Normal coronary arteriogram"/medical therapy recommended Status post renal artery angioplasty x2 (with renal stents) Family History Mother Asthma Cardiac disorder Hypertension Father Cardiac disorder Hearing loss Hypertension Family/Other No problems noted. Sister Hearing loss Grandmother (Paternal) Hypertension Grandfather (Paternal) Hypertension Son Environmental allergies Daughter Environmental allergies Other No family history of bleeding disorder Social History Smoking Status: Never smoker packs per day: 1; Second Hand Exposure: No; Do You Dip or Chew Tobacco: No; Hx Alcohol Use: Yes Alcohol type: beer Hx Substance Use: No Preferred Language: [place] Verdean Communication Ability: Effective Customs Opener Verifier Packer Required: No Beliefs That Will Affect Care: None marital status: Current Living Situation: Spouse current occupational status: employed 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 Feels Safe at Home: Yes Assistive Devices: Cane, CPAP and Glasses Allergies Allergies Allergy/AdvReac Type Severity Reaction Status Date / Time naproxen Allergy Severe Diffuse Verified 11/14/22 20:36 joint swelling, difficulty ambulating amoxicillin Allergy Unknown Rash Verified 11/14/22 20:36 clavulanic acid Allergy Unknown Rash Verified 11/14/22 20:36 Home Meds Home Medications Medication Instructions Recorded Confirmed albuterol sulfate 90 mcg/actuation 2 puffs inhalation Q6H PRN 05/31/19 11/14/22 aerosol inhaler (ProAir HFA) Shortness Of Breath amlodipine 10 mg tablet 10 mg PO QPM 05/31/19 11/14/22 aspirin 81 mg tablet,delayed 81 mg PO QAM 05/31/19 11/14/22 release atorvastatin 80 mg tablet 80 mg PO QPM 05/31/19 11/14/22 bisacodyl 5 mg tablet 5 mg PO BID 05/31/19 11/14/22 clopidogrel 75 mg tablet 75 mg PO QAM 05/31/19 11/14/22 docusate sodium 100 mg capsule 100 mg PO BID 05/31/19 11/14/22 (DOK) loratadine 10 mg tablet 10 mg PO QAM 05/31/19 11/14/22 lorazepam 0.5 mg tablet 0.5 mg PO TID PRN Vertigo 05/31/19 11/14/22 losartan 100 mg tablet 100 mg PO QAM 05/31/19 11/14/22 meclizine 25 mg tablet 25 mg PO TID PRN Vertigo 05/31/19 11/14/22 potassium chloride 20 mEq 20 meq PO BID 05/31/19 11/14/22 tablet,extended release baclofen 10 mg tablet 10 mg PO QAM PRN Pain 09/29/21 11/14/22 cholecalciferol (vitamin D3) 50 50 mcg PO BID 09/29/21 11/14/22 mcg (2,000 unit) capsule furosemide 20 mg tablet (Lasix) 20 mg PO QAM 09/29/21 11/14/22 promethazine 25 mg tablet 25 mg PO Q6H PRN Vertigo 09/29/21 11/14/22 metoprolol succinate 25 mg 25 mg PO BID 10/29/21 11/14/22 tablet,extended release 24 hr dapagliflozin propanediol 10 mg 10 mg PO DAILY 11/14/22 11/14/22 tablet (Farxiga) famotidine 20 mg tablet 20 mg PO BID 11/14/22 11/14/22 hydrocodone 7.5 mg-acetaminophen 1 tab PO BID PRN Pain 11/14/22 11/14/22 325 mg tablet semaglutide 0.25 mg or 0.5 mg (2 2 mg subcut WK 11/14/22 11/14/22 mg/3 mL) subcutaneous pen injector (Ozempic) Previous Rx's Medication Instructions Recorded azelastine 137 mcg (0.1 %) nasal 2 spray intranasal BID #30 mL 09/06/22 spray aerosol Results & Data (ED) Vital Signs Vital Signs - 24 hr 11/14/22 14:25 11/14/22 19:44 11/14/22 19:44 Temperature 36.7 C Temperature Source Temporal Artery Scan Pulse Rate 64 Pulse Rate from SpO2 Sensor Pulse Rhythm Regular Pulse Strength Normal Respiratory Rate 18 Respiratory Effort / Characteristics Non-Labored Respiratory Depth Normal Respiratory Pattern Regular Blood Pressure 157/95 H Blood Pressure Mean 115 Pulse Oximetry 97 97 97 Oxygen Delivery Method Room Air Room Air Room Air Oxygen Flow Rate 0 Sepsis Recent Fever Within 48 Hours Yes Sepsis New/Unexplained Change in Mental Status No Sepsis Action Taken by Nursing No Action Required 11/14/22 19:45 11/14/22 19:46 11/14/22 20:00 Temperature Temperature Source Pulse Rate 61 61 Pulse Rate from SpO2 Sensor 60 Pulse Rhythm Pulse Strength Respiratory Rate 21 Respiratory Effort / Characteristics Respiratory Depth Respiratory Pattern Blood Pressure 159/102 H Blood Pressure Mean 113 Pulse Oximetry 96 Oxygen Delivery Method Oxygen Flow Rate Sepsis Recent Fever Within 48 Hours Sepsis New/Unexplained Change in Mental Status Sepsis Action Taken by Nursing 11/14/22 20:00 11/14/22 20:30 11/14/22 20:30 Temperature Temperature Source Pulse Rate 59 L 59 L Pulse Rate from SpO2 Sensor 59 L 60 Pulse Rhythm Pulse Strength Respiratory Rate 17 19 Respiratory Effort / Characteristics Respiratory Depth Respiratory Pattern Blood Pressure 128/85 Blood Pressure Mean 109 Pulse Oximetry 98 95 Oxygen Delivery Method Oxygen Flow Rate Sepsis Recent Fever Within 48 Hours Sepsis New/Unexplained Change in Mental Status Sepsis Action Taken by Nursing 11/14/22 20:51 11/14/22 20:51 11/14/22 21:00 Temperature Temperature Source Pulse Rate 60 Pulse Rate from SpO2 Sensor 61 Pulse Rhythm Pulse Strength Respiratory Rate 19 Respiratory Effort / Characteristics Respiratory Depth Respiratory Pattern Blood Pressure 134/75 120/79 Blood Pressure Mean 92 98 Pulse Oximetry 96 Oxygen Delivery Method Oxygen Flow Rate Sepsis Recent Fever Within 48 Hours Sepsis New/Unexplained Change in Mental Status Sepsis Action Taken by Nursing 11/14/22 21:00 11/14/22 21:30 11/14/22 21:31 Temperature Temperature Source Pulse Rate 60 71 61 Pulse Rate from SpO2 Sensor 60 62 59 L Pulse Rhythm Pulse Strength Respiratory Rate 16 17 19 Respiratory Effort / Characteristics Respiratory Depth Respiratory Pattern Blood Pressure Blood Pressure Mean Pulse Oximetry 97 96 97 Oxygen Delivery Method Room Air Oxygen Flow Rate Sepsis Recent Fever Within 48 Hours Sepsis New/Unexplained Change in Mental Status Sepsis Action Taken by Nursing 11/14/22 21:31 11/14/22 22:00 11/14/22 22:00 Temperature Temperature Source Pulse Rate 57 L Pulse Rate from SpO2 Sensor 57 L Pulse Rhythm Pulse Strength Respiratory Rate 17 Respiratory Effort / Characteristics Respiratory Depth Respiratory Pattern Blood Pressure 133/93 131/93 Blood Pressure Mean 100 120 Pulse Oximetry 97 Oxygen Delivery Method Room Air Oxygen Flow Rate Sepsis Recent Fever Within 48 Hours Sepsis New/Unexplained Change in Mental Status Sepsis Action Taken by Nursing Laboratory Data 11/14/22 16:09 11/14/22 16:09 Lab Results 11/14/22 11/14/22 11/14/22 Range/Units 16:09 16:09 16:09 WBC 8.56 (4.8-10.8) K/ul RBC 4.86 (4.70-6.10) M/uL Hgb 15.4 (14.0-18.0) g/dl Hct 45.2 (42.0-52.0) % MCV 93.0 (80.0-100.0) fL MCH 31.7 (25.0-34.0) pg MCHC 34.1 (32.0-36.0) g/dL RDW Std Deviation 44.8 (36.4-46.3) fL RDW Coeff of Robert 13.3 (11.5-14.5) % Plt Count 296 (130-400) K/uL MPV 9.3 L (9.4-12.4) fL Immature Gran % (Auto) 0.2 % Neut % (Auto) 53.7 % Lymph % (Auto) 29.0 % [place] % (Auto) 11.6 % Eos % (Auto) 5.1 % Baso % (Auto) 0.4 % Neut # (Auto) 4.60 (1.40-6.50) K/uL Lymph # (Auto) 2.48 (1.2-3.4) K/uL [place] # (Auto) 0.99 H (0.11-0.59) K/uL Eos # (Auto) 0.44 (0-0.50) K/uL Baso # (Auto) 0.03 (0-0.2) K/uL Immature Gran # (Auto) 0.02 (0.01-0.20) K/uL PT 10.3 (9.0-12.0) Seconds INR 0.9 (0.9-1.1) APTT 25.1 (21.0-31.0) Seconds PTT Ratio 0.9 D-Dimer (0-500) ug/L FEU Sodium 137 (136-145) mmol/L Potassium 4.1 (3.5-5.1) mmol/L Chloride 102 (98-107) mmol/L Carbon Dioxide 29 (21-32) mmol/L Anion Gap 6 (3-11) BUN 13 (6-23) mg/dl Creatinine 1.18 (0.6-1.4) mg/dl Est Cr Clr Drug Dosing 93.8 ml/min Est GFR ( Amer) 80.0 ml/min Est GFR (Non-Af Amer) 69.1 ml/min BUN/Creatinine Ratio 11.0 (10-20) Glucose 83 (70-99(Fasting)) mg/dl Calcium 9.3 (8.6-10.3) mg/dl Total Bilirubin 0.5 (0.2-1.0) mg/dl AST 18 (13-39) U/L ALT 24 (7-52) U/L Alkaline Phosphatase 90 (34-104) U/L Troponin I High Sens 6.4 (0-20) pg/ml B-Natriuretic Peptide (0-100) pg/ml Total Protein 7.7 (6.0-8.3) gm/dl Albumin 4.3 (3.4-5.0) gm/dl Globulin 3.4 (2.5-4.0) gm/dl Albumin/Globulin Ratio 1.3 (0.9-2) 11/14/22 11/14/22 11/14/22 Range/Units 16:09 19:37 21:31 WBC (4.8-10.8) K/ul RBC (4.70-6.10) M/uL Hgb (14.0-18.0) g/dl Hct (42.0-52.0) % MCV (80.0-100.0) fL MCH (25.0-34.0) pg MCHC (32.0-36.0) g/dL RDW Std Deviation (36.4-46.3) fL RDW Coeff of Robert (11.5-14.5) % Plt Count (130-400) K/uL MPV (9.4-12.4) fL Immature Gran % (Auto) % Neut % (Auto) % Lymph % (Auto) % [place] % (Auto) % Eos % (Auto) % Baso % (Auto) % Neut # (Auto) (1.40-6.50) K/uL Lymph # (Auto) (1.2-3.4) K/uL [place] # (Auto) (0.11-0.59) K/uL Eos # (Auto) (0-0.50) K/uL Baso # (Auto) (0-0.2) K/uL Immature Gran # (Auto) (0.01-0.20) K/uL PT (9.0-12.0) Seconds INR (0.9-1.1) APTT (21.0-31.0) Seconds PTT Ratio D-Dimer 290 (0-500) ug/L FEU Sodium (136-145) mmol/L Potassium (3.5-5.1) mmol/L Chloride (98-107) mmol/L Carbon Dioxide (21-32) mmol/L Anion Gap (3-11) BUN (6-23) mg/dl Creatinine (0.6-1.4) mg/dl Est Cr Clr Drug Dosing ml/min Est GFR ( Amer) ml/min Est GFR (Non-Af Amer) ml/min BUN/Creatinine Ratio (10-20) Glucose (70-99(Fasting)) mg/dl Calcium (8.6-10.3) mg/dl Total Bilirubin (0.2-1.0) mg/dl AST (13-39) U/L ALT (7-52) U/L Alkaline Phosphatase (34-104) U/L Troponin I High Sens 7.4 (0-20) pg/ml B-Natriuretic Peptide 25 (0-100) pg/ml Total Protein (6.0-8.3) gm/dl Albumin (3.4-5.0) gm/dl Globulin (2.5-4.0) gm/dl Albumin/Globulin Ratio (0.9-2) Administered Medications Discontinued Medications Sodium Chloride (Nss 1000ml) 1,000 mls @ 999 mls/hr IV .Q1H1M ONE Stop: 11/14/22 21:11 Last Admin: 11/14/22 20:21 Dose: 999 mls/hr Documented By: LIANNA Ioversol (Ioversol 350 Mg 125ml Prefilled Syringe) 118 ml IV ONCE ONE Stop: 11/14/22 20:42 Last Admin: 11/14/22 20:46 Dose: 118 ml Documented By: LYNETTE Lorazepam (Lorazepam 2 Mg/1 Ml Vial) 0.5 mg IV NOW STA Stop: 11/14/22 20:12 Last Admin: 11/14/22 20:22 Dose: 0.5 mg Documented By: LIANNA Imaging Data Radiologist's Impression: Chest X-Ray 11/14/22 14:29 XR chest 1V portable HISTORY: 57 years-old Male Chest pain, nonspecific acute chest pain COMPARISON: 05/09/2022 TECHNIQUE: AP view of the chest FINDINGS: Cardiac mediastinal and hilar silhouettes are within normal limits. No pneumothorax, pleural effusion, airspace consolidation or overt pulmonary edema. A loop recorder device is again noted. Unchanged mild right hemidiaphragmatic elevation. Degenerative changes of the shoulders and spine. Surgical clips of the upper abdomen. Postoperative changes of the right humeral head with fusion hardware of the lumbar and cervical spine. IMPRESSION: No acute process. ACT 112: Negative or not required by law. The above report was generated using voice recognition software. It may contain grammatical, syntax or spelling errors. Electronically signed by: Faisal Saunders M.D. 11/14/2022 4:31 PM Head CTA 11/14/22 20:11 Exam(s): CTA HEAD With Contrast IV Amt: 118 ml optiray 350 EXAM: CT Angiography Head With Intravenous Contrast CLINICAL HISTORY: Reason for exam: dizziness; tinnitus. TECHNIQUE: Axial computed tomographic angiography images of the head with intravenous contrast. CTDI is 70.31 mGy and DLP is 1155.32 mGy-cm. Automated exposure control was utilized for the study. A dose lowering technique was utilized adhering to the principles of ALARA. 2D MIP reconstructed images were created and reviewed. CONTRAST: Patient received 118 ml optiray 350 of IV contrast COMPARISON: No relevant prior studies available. FINDINGS: Right internal carotid artery: No acute findings. Intracranial segment is patent with no significant stenosis. No aneurysm. Right anterior cerebral artery: Unremarkable. No occlusion or significant stenosis. No aneurysm. Right middle cerebral artery: Unremarkable. No occlusion or significant stenosis. No aneurysm. Right posterior cerebral artery: Unremarkable. No occlusion or significant stenosis. No aneurysm. Right vertebral artery: The visualized portions of the right vertebral artery are patent but small in caliber. Left internal carotid artery: No acute findings. Intracranial segment is patent with no significant stenosis. No aneurysm. Left anterior cerebral artery: Unremarkable. No occlusion or significant stenosis. No aneurysm. Left middle cerebral artery: Unremarkable. No occlusion or significant stenosis. No aneurysm. Left posterior cerebral artery: Unremarkable. No occlusion or significant stenosis. No aneurysm. Left vertebral artery: Unremarkable as visualized. Basilar artery: Unremarkable. No occlusion or significant stenosis. No aneurysm. Other findings: Please see separate dictation for details of the extracranial circulation. IMPRESSION: No acute findings in the arteries of the head/brain. Electronically signed by: Dwight Buck MD 11/14/22 21:24 PM Neck CTA 11/14/22 20:11 CR Exam(s): CTA NECK With Contrast IV Amt: 118 ml optiray 350 EXAM: CT Angiography Neck With Intravenous Contrast CLINICAL HISTORY: Reason for exam: dizziness; tinnitus. TECHNIQUE: Routine carotid CT angiography protocol was performed with intravenous contrast. NASCET criteria using the distal ICAs for comparison were used for evaluation of stenoses. CTDI is 70.31 mGy and DLP is 1155.32 mGy-cm. Automated exposure control was utilized for the study. A dose lowering technique was utilized adhering to the principles of ALARA. MIP reconstructed images were created and reviewed. CONTRAST: Patient received 118 ml optiray 350 of IV contrast COMPARISON: None. FINDINGS: VASCULATURE: Right common carotid artery: Unremarkable. No occlusion or significant stenosis. No dissection. Right internal carotid artery: Unremarkable. Extracranial segment is patent with no occlusion or significant stenosis. No dissection. Right external carotid artery: Unremarkable. No occlusion. Right vertebral artery: Occlusion of the right vertebral artery at its origin with retrograde reconstitution of the vertebral artery at the level of the hyoid which eventually reoccludes at the level of the mandibular angle. There is reconstitution of the distal vertebral artery via collaterals and the bel[place] of [place]. . Left common carotid artery: Unremarkable. No occlusion or significant stenosis. No dissection. Left internal carotid artery: Unremarkable. Extracranial segment is patent with no occlusion or significant stenosis. No dissection. Left external carotid artery: Unremarkable. No occlusion. Left vertebral artery: Left vertebral artery is widely patent. No occlusion or significant stenosis. No dissection. NECK: Bones/joints: Unremarkable. Soft tissues: Unremarkable. Lung apices: Clear. CAROTID STENOSIS REFERENCE USING NASCET CRITERIA: % ICA stenosis = (1 - narrowest ICA diameter/diameter of distal cervical ICA) x 100. Mild - <50% stenosis. Moderate - 50-69% stenosis. Severe - 70-94% stenosis. Near occlusion - 95-99% stenosis. Occluded - 100% stenosis. IMPRESSION: Occlusion of the right vertebral artery from its origin with short segments of reconstitution as described above. Communications: Call Doctor Acute arterial occlusion/ critical stenosis Electronically signed by: Dwight Buck MD 11/14/22 21:[address] 11/14/22 20:27 Exam(s): CT HEAD Without Contrast EXAM: CT Head Without Intravenous Contrast CLINICAL HISTORY: Reason for exam: dizziness; tinnitus. TECHNIQUE: Axial computed tomography images of the head/brain without intravenous contrast. CTDI is 38.03 mGy and DLP is 624.41 mGy-cm. Automated exposure control was utilized for the study. A dose lowering technique was utilized adhering to the principles of ALARA. COMPARISON: No relevant prior studies available. FINDINGS: Brain: Unremarkable. No hemorrhage. No significant white matter disease. No edema. Ventricles: Unremarkable. No ventriculomegaly. Bones/joints: Unremarkable. No acute fracture. Soft tissues: Unremarkable. Sinuses: Unremarkable as visualized. No acute sinusitis. Mastoid air cells: Unremarkable as visualized. No mastoid effusion. IMPRESSION: Normal head/brain CT. Electronically signed by: Dwight Buck MD 11/14/22 21:12 PM Discharge Plan Visit Data Chief Complaint: Vertigo Stated Complaint: DIZZY, CHEST PAINS, STANDING MAKES DIZZY ED Provider: Ena Hernandez Discharge Problem: Vertigo, central, Occlusion of right vertebral artery Forms Stand Alone Forms: [employer] Prescriptions Prescriptions: No Action azelastine 137 mcg (0.1 %) aerosol,spray 2 spray intranasal BID Qty: 30 6RF Rx Instructions: administer into each nostril potassium chloride 20 mEq tablet extended release 20 meq PO BID losartan 100 mg tablet 100 mg PO QAM docusate sodium [DOK] 100 mg capsule 100 mg PO BID atorvastatin 80 mg tablet 80 mg PO QPM loratadine 10 mg tablet 10 mg PO QAM amlodipine 10 mg tablet 10 mg PO QPM bisacodyl 5 mg tablet 5 mg PO BID meclizine 25 mg tablet 25 mg PO TID PRN (Reason: Vertigo) lorazepam 0.5 mg tablet 0.5 mg PO TID PRN (Reason: Vertigo) albuterol sulfate [ProAir HFA] 90 mcg/actuation HFA aerosol inhaler 2 puffs INH Q6H PRN (Reason: Shortness Of Breath) clopidogrel 75 mg tablet 75 mg PO QAM aspirin 81 mg tablet,delayed release (DR/EC) 81 mg PO QAM promethazine 25 mg tablet 25 mg PO Q6H PRN (Reason: Vertigo) cholecalciferol (vitamin D3) 50 mcg (2,000 unit) capsule 50 mcg PO BID baclofen 10 mg tablet 10 mg PO QAM PRN (Reason: Pain) furosemide [Lasix] 20 mg tablet 20 mg PO QAM metoprolol succinate 25 mg Tablet Extended Release 24 Hr 25 mg PO BID hydrocodone-acetaminophen 7.5-325 mg tablet 1 tab PO BID PRN (Reason: Pain) famotidine 20 mg tablet 20 mg PO BID Ozempic 0.25 mg or 0.5 mg (2 mg/3 mL) pen injector 2 mg SUBCUT WK Rx Instructions: take this med every Monday Farxiga 10 mg tablet 10 mg PO DAILY Referrals Referrals: Aryan Benson [Primary Care Provider] -
[2022-11-14] MEDS ORDERED: IOVERSOL 350 MG 125mL Prefilled Syringe IV ONE (20:41)
--- NOTE | 2022-11-14 21:13 | CT Scan Report ---
Exam(s): CT HEAD Without Contrast EXAM: CT Head Without Intravenous Contrast CLINICAL HISTORY: Reason for exam: dizziness; tinnitus. TECHNIQUE: Axial computed tomography images of the head/brain without intravenous contrast. CTDI is 38.03 mGy and DLP is 624.41 mGy-cm. Automated exposure control was utilized for the study. A dose lowering technique was utilized adhering to the principles of ALARA. COMPARISON: No relevant prior studies available. FINDINGS: Brain: Unremarkable. No hemorrhage. No significant white matter disease. No edema. Ventricles: Unremarkable. No ventriculomegaly. Bones/joints: Unremarkable. No acute fracture. Soft tissues: Unremarkable. Sinuses: Unremarkable as visualized. No acute sinusitis. Mastoid air cells: Unremarkable as visualized. No mastoid effusion. IMPRESSION: Normal head/brain CT. Electronically signed by: Dwight Buck MD 11/14/22 21:12 PM
--- NOTE | 2022-11-14 21:20 | CT Scan Report ---
Exam(s): CTA NECK With Contrast IV Amt: 118 ml optiray 350 EXAM: CT Angiography Neck With Intravenous Contrast CLINICAL HISTORY: Reason for exam: dizziness; tinnitus. TECHNIQUE: Routine carotid CT angiography protocol was performed with intravenous contrast. NASCET criteria using the distal ICAs for comparison were used for evaluation of stenoses. CTDI is 70.31 mGy and DLP is 1155.32 mGy-cm. Automated exposure control was utilized for the study. A dose lowering technique was utilized adhering to the principles of ALARA. MIP reconstructed images were created and reviewed. CONTRAST: Patient received 118 ml optiray 350 of IV contrast COMPARISON: None. FINDINGS: VASCULATURE: Right common carotid artery: Unremarkable. No occlusion or significant stenosis. No dissection. Right internal carotid artery: Unremarkable. Extracranial segment is patent with no occlusion or significant stenosis. No dissection. Right external carotid artery: Unremarkable. No occlusion. Right vertebral artery: Occlusion of the right vertebral artery at its origin with retrograde reconstitution of the vertebral artery at the level of the hyoid which eventually reoccludes at the level of the mandibular angle. There is reconstitution of the distal vertebral artery via collaterals and the [place] of [place]. . Left common carotid artery: Unremarkable. No occlusion or significant stenosis. No dissection. Left internal carotid artery: Unremarkable. Extracranial segment is patent with no occlusion or significant stenosis. No dissection. Left external carotid artery: Unremarkable. No occlusion. Left vertebral artery: Left vertebral artery is widely patent. No occlusion or significant stenosis. No dissection. NECK: Bones/joints: Unremarkable. Soft tissues: Unremarkable. Lung apices: Clear. CAROTID STENOSIS REFERENCE USING NASCET CRITERIA: % ICA stenosis = (1 - narrowest ICA diameter/diameter of distal cervical ICA) x 100. Mild - <50% stenosis. Moderate - 50-69% stenosis. Severe - 70-94% stenosis. Near occlusion - 95-99% stenosis. Occluded - 100% stenosis. IMPRESSION: Occlusion of the right vertebral artery from its origin with short segments of reconstitution as described above. Communications: Call Doctor Acute arterial occlusion/ critical stenosis Electronically signed by: Dwight Buck MD 11/14/22 21:19 PM
--- NOTE | 2022-11-14 21:25 | CT Scan Report ---
Exam(s): CTA HEAD With Contrast IV Amt: 118 ml optiray 350 EXAM: CT Angiography Head With Intravenous Contrast CLINICAL HISTORY: Reason for exam: dizziness; tinnitus. TECHNIQUE: Axial computed tomographic angiography images of the head with intravenous contrast. CTDI is 70.31 mGy and DLP is 1155.32 mGy-cm. Automated exposure control was utilized for the study. A dose lowering technique was utilized adhering to the principles of ALARA. 2D MIP reconstructed images were created and reviewed. CONTRAST: Patient received 118 ml optiray 350 of IV contrast COMPARISON: No relevant prior studies available. FINDINGS: Right internal carotid artery: No acute findings. Intracranial segment is patent with no significant stenosis. No aneurysm. Right anterior cerebral artery: Unremarkable. No occlusion or significant stenosis. No aneurysm. Right middle cerebral artery: Unremarkable. No occlusion or significant stenosis. No aneurysm. Right posterior cerebral artery: Unremarkable. No occlusion or significant stenosis. No aneurysm. Right vertebral artery: The visualized portions of the right vertebral artery are patent but small in caliber. Left internal carotid artery: No acute findings. Intracranial segment is patent with no significant stenosis. No aneurysm. Left anterior cerebral artery: Unremarkable. No occlusion or significant stenosis. No aneurysm. Left middle cerebral artery: Unremarkable. No occlusion or significant stenosis. No aneurysm. Left posterior cerebral artery: Unremarkable. No occlusion or significant stenosis. No aneurysm. Left vertebral artery: Unremarkable as visualized. Basilar artery: Unremarkable. No occlusion or significant stenosis. No aneurysm. Other findings: Please see separate dictation for details of the extracranial circulation. IMPRESSION: No acute findings in the arteries of the head/brain. Electronically signed by: Dwight Buck MD 11/14/22 21:24 PM
[2022-11-14 22:29] LABS: D Dimer 290 ug/L FEU (0-500)
--- NOTE | 2022-11-14 22:50 | History & Physical Report ---
Date of Service November 14, 2022 Assessment & Plan (1) Vertigo: Plan: 57-year-old male with history of Mnire's disease presenting with persistent severe vertigo, blurry vision and unsteady gait since this morning. Concern for peripheral vertigo versus possible cerebellar stroke. Images as above with occlusion of right vertebral artery with reconstitution. Observation to medical with telemetry Neurochecks and NIH stroke scale per protocol Check MRI brain Check hemoglobin A1c and fasting lipid panel Continue aspirin 81 mg p.o. daily and Plavix 75 mg p.o. daily (patient's home medications) Continue atorvastatin 80 mg p.o. every afternoon Check 2D echo PT evaluation appreciated Meclizine 25 mg p.o. 3 times daily scheduled Ativan 0.5 mg p.o. 3 times daily Patient had been on Eliquis anticoagulation after being diagnosed with a blood clot provoked in the setting of COVID. He is no longer on anticoagulation medication (2) Obstructive sleep apnea: Plan: CPAP nightly (3) Hypertension: Plan: Blood pressure adequately controlled at present. We will hold antihypertensives to allow for permissive hypertension until stroke is ruled out. Holding amlodipine, losartan and metoprolol Continue to monitor blood pressure (4) Hyperlipidemia: Plan: Chronic. Stable. -Continue atorvastatin 80 mg p.o. daily History of Present Illness Chief Complaint: dizziness Primary Care Provider: Aryan Marcelino Conner is a 57yo male with history of Meniere's disease of the left ear with intermittent vertigo/tinnitus and hearing loss presenting with persistent dizziness/vertigo. Patient has had episodes of dizziness over the last several days, mainly with getting up and changing positions. Today. His dizziness became more severe and persistent throughout the day. He also had blurry vision which is atypical for him. His symptoms started this morning acutely around 07 30 when he was in the shower getting ready for work. He became acutely dizzy and nearly fell. He laid down in bed and is unsure if he passed out or fell asleep but he woke up around 11:00. He got out of bed and started to walk around, ate something then again had abrupt onset of severe vertigo. At this time he developed some mild left- sided chest pain as well as pain in his left neck. His blurry vision has since resolved but he still has persistent dizziness specifically worsened with turning his head. He cannot move his eyes without triggering vertigo. He has ongoing tinnitus for the last 2 to 3 days. He has been taking Ativan at home without relief. He did take some meclizine today as well which gave him a small amount of relief. Additionally he reports to mild fever and shortness of breath. Denies palpitations, vomiting, diarrhea. No visual loss or amaurosis fugax. No additional complaints Case was discussed with telestroke neurologist who recommended MRI for possible cerebellar stroke. Allergies Allergy/AdvReac Type Severity Reaction Status Date / Time naproxen Allergy Severe Diffuse Verified 11/14/22 20:36 joint swelling, difficulty ambulating amoxicillin Allergy Unknown Rash Verified 11/14/22 20:36 clavulanic acid Allergy Unknown Rash Verified 11/14/22 20:36 Home Medications Medication Instructions Recorded Confirmed Type albuterol sulfate 90 mcg/actuation 2 puffs inhalation Q6H PRN 05/31/19 11/14/22 History aerosol inhaler (ProAir HFA) Shortness Of Breath amlodipine 10 mg tablet 10 mg PO QPM 05/31/19 11/14/22 History aspirin 81 mg tablet,delayed 81 mg PO QAM 05/31/19 11/14/22 History release atorvastatin 80 mg tablet 80 mg PO QPM 05/31/19 11/14/22 History bisacodyl 5 mg tablet 5 mg PO BID 05/31/19 11/14/22 History clopidogrel 75 mg tablet 75 mg PO QAM 05/31/19 11/14/22 History docusate sodium 100 mg capsule 100 mg PO BID 05/31/19 11/14/22 History (DOK) loratadine 10 mg tablet 10 mg PO QAM 05/31/19 11/14/22 History lorazepam 0.5 mg tablet 0.5 mg PO TID PRN Vertigo 05/31/19 11/14/22 History losartan 100 mg tablet 100 mg PO QAM 05/31/19 11/14/22 History meclizine 25 mg tablet 25 mg PO TID PRN Vertigo 05/31/19 11/14/22 History potassium chloride 20 mEq 20 meq PO BID 05/31/19 11/14/22 History tablet,extended release baclofen 10 mg tablet 10 mg PO QAM PRN Pain 09/29/21 11/14/22 History cholecalciferol (vitamin D3) 50 50 mcg PO BID 09/29/21 11/14/22 History mcg (2,000 unit) capsule furosemide 20 mg tablet (Lasix) 20 mg PO QAM 09/29/21 11/14/22 History promethazine 25 mg tablet 25 mg PO Q6H PRN Vertigo 09/29/21 11/14/22 History metoprolol succinate 25 mg 25 mg PO BID 10/29/21 11/14/22 History tablet,extended release 24 hr azelastine 137 mcg (0.1 %) nasal 2 spray intranasal BID #30 mL 09/06/22 11/14/22 Rx spray aerosol dapagliflozin propanediol 10 mg 10 mg PO DAILY 11/14/22 11/14/22 History tablet (Farxiga) famotidine 20 mg tablet 20 mg PO BID 11/14/22 11/14/22 History hydrocodone 7.5 mg-acetaminophen 1 tab PO BID PRN Pain 11/14/22 11/14/22 History 325 mg tablet semaglutide 0.25 mg or 0.5 mg (2 2 mg subcut WK 11/14/22 11/14/22 History mg/3 mL) subcutaneous pen injector (Ozempic) Past Med/Surg History Medical History (Updated 11/15/22 @ 02:40 by Brianne Boss DO) Asthma rescue inhaler use-most days with any activity Chiari malformation pt declined surgical intervention History of COVID-19 02/2022- fever, cough, sore throat, fatigue, covid pneumonia > resolved Hyperlipidemia Hypertension controlled, stable per pt Implantable loop recorder present Placed 2 yrs ago Follows with Dr. Hook Kidney disease "Late stage 3-chronic kidney failure" Follows with Dr. 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 Caban History of hip surgery Right hip percutaneous pinning (03/23/17): Easy, atraumatic intubation, Elective Glidescope#3, ETT 7.5 at [facility]. No issues noted per post-op anesthesia progress note. History of nasal septoplasty with turbinate reduction-11/26/21-Dr. Caban History of neck surgery anterior decompression-fusion, pt unsure of levels History of rotator cuff surgery x 2 right both S/P cardiac cath Approximately 06/01/21 ([facility]) > "Normal coronary arteriogram"/medical therapy recommended Status post renal artery angioplasty x2 (with renal stents) Family History Mother Asthma Cardiac disorder Hypertension Father Cardiac disorder Hearing loss Hypertension Family/Other No problems noted. 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 Feels Safe at Home: Yes Assistive Devices: Cane, CPAP and Glasses Review of Systems Review of Systems: All systems reviewed & are unremarkable except as noted in HPI & below Physical Exam Physical Exam: General: patient resting comfortably, NAD, non-toxic in appearance, AA&O x 4 Skin: warm, dry, intact, no rashes or lesions HEENT: NC/AT, PERRL, EOMI, horizontal nystagmus, vertigo induced with eye movement, anicteric sclera, conjunctiva without injection, external ear normal to inspection and nontender, nares patent, moist mucus membranes, dentition intact, no oropharyngeal lesions, neck supple, trachea midline, no LAD, no thyromegaly, no JVD Heart: +S1/S2, regular, no m/r/g Lungs: equal air entry bilaterally, no rales/rhonchi/wheezes Abd: +BS, soft, NT/ND, no masses/organomegaly/ascites Ext: warm, 2+ pulses in UE/LE bilaterally, no clubbing/cyanosis or edema Neuro: Patient awake alert and oriented x4, speech intact, no facial droop, sensation to light touch intact, moving all extremities with equal strength 5/5, mild dysmetria noted with [id number] in the right upper extremity Results & Data Results & Data Vital Signs (Past 12 Hours) Vital Signs Temp Pulse Resp BP Pulse Ox O2 Del Method O2 Flow Rate 11/14/22 22:00 57 L 17 97 Room Air 11/14/22 22:00 131/93 11/14/22 21:31 133/93 11/14/22 21:31 61 19 97 11/14/22 21:30 71 17 96 11/14/22 21:00 60 16 97 Room Air 11/14/22 21:00 120/79 11/14/22 20:51 60 19 96 11/14/22 20:51 134/75 11/14/22 20:30 59 L 19 95 11/14/22 20:30 128/85 11/14/22 20:00 59 L 17 98 11/14/22 20:00 159/102 H 11/14/22 19:46 61 21 96 11/14/22 19:45 61 11/14/22 19:44 97 Room Air 11/14/22 19:44 97 Room Air 0 11/14/22 14:25 36.7 C 64 18 157/95 H 97 Room Air Laboratory Results Laboratory Results WBC 8.56 K/ul (4.8-10.8) 11/14/22 16:09 RBC 4.86 M/uL (4.70-6.10) 11/14/22 16:09 Hgb 15.4 g/dl (14.0-18.0) 11/14/22 16:09 Hct 45.2 % (42.0-52.0) 11/14/22 16:09 MCV 93.0 fL (80.0-100.0) 11/14/22 16:09 MCH 31.7 pg (25.0-34.0) 11/14/22 16:09 MCHC 34.1 g/dL (32.0-36.0) 11/14/22 16:09 RDW Std Deviation 44.8 fL (36.4-46.3) 11/14/22 16:09 RDW Coeff of Robert 13.3 % (11.5-14.5) 11/14/22 16:09 Plt Count 296 K/uL (130-400) 11/14/22 16:09 MPV 9.3 fL (9.4-12.4) L 11/14/22 16:09 Immature Gran % (Auto) 0.2 % 11/14/22 16:09 Neut % (Auto) 53.7 % 11/14/22 16:09 Lymph % (Auto) 29.0 % 11/14/22 16:09 [place] % (Auto) 11.6 % 11/14/22 16:09 Eos % (Auto) 5.1 % 11/14/22 16:09 Baso % (Auto) 0.4 % 11/14/22 16:09 Neut # (Auto) 4.60 K/uL (1.40-6.50) 11/14/22 16:09 Lymph # (Auto) 2.48 K/uL (1.2-3.4) 11/14/22 16:09 [place] # (Auto) 0.99 K/uL (0.11-0.59) H 11/14/22 16:09 Eos # (Auto) 0.44 K/uL (0-0.50) 11/14/22 16:09 Baso # (Auto) 0.03 K/uL (0-0.2) 11/14/22 16:09 Immature Gran # (Auto) 0.02 K/uL (0.01-0.20) 11/14/22 16:09 PT 10.3 Seconds (9.0-12.0) 11/14/22 16:09 INR 0.9 (0.9-1.1) 11/14/22 16:09 APTT 25.1 Seconds (21.0-31.0) 11/14/22 16:09 PTT Ratio 0.9 11/14/22 16:09 D-Dimer 290 ug/L FEU (0-500) 11/14/22 21:31 Sodium 137 mmol/L (136-145) 11/14/22 16:09 Potassium 4.1 mmol/L (3.5-5.1) 11/14/22 16:09 Chloride 102 mmol/L (98-107) 11/14/22 16:09 Carbon Dioxide 29 mmol/L (21-32) 11/14/22 16:09 Anion Gap 6 (3-11) 11/14/22 16:09 BUN 13 mg/dl (6-23) 11/14/22 16:09 Creatinine 1.18 mg/dl (0.6-1.4) 11/14/22 16:09 Est Cr Clr Drug Dosing 93.8 ml/min 11/14/22 16:09 Est GFR ( Amer) 80.0 ml/min 11/14/22 16:09 Est GFR (Non-Af Amer) 69.1 ml/min 11/14/22 16:09 BUN/Creatinine Ratio 11.0 (10-20) 11/14/22 16:09 Glucose 83 mg/dl (70-99(Fasting)) 11/14/22 16:09 Calcium 9.3 mg/dl (8.6-10.3) 11/14/22 16:09 Total Bilirubin 0.5 mg/dl (0.2-1.0) 11/14/22 16:09 AST 18 U/L (13-39) 11/14/22 16:09 ALT 24 U/L (7-52) 11/14/22 16:09 Alkaline Phosphatase 90 U/L (34-104) 11/14/22 16:09 Troponin I High Sens 7.4 pg/ml (0-20) 11/14/22 19:37 B-Natriuretic Peptide 25 pg/ml (0-100) 11/14/22 16:09 Total Protein 7.7 gm/dl (6.0-8.3) 11/14/22 16:09 Albumin 4.3 gm/dl (3.4-5.0) 11/14/22 16:09 Globulin 3.4 gm/dl (2.5-4.0) 11/14/22 16:09 Albumin/Globulin Ratio 1.3 (0.9-2) 11/14/22 16:09 Impressions Chest X-Ray 11/14/22 14:29 XR chest 1V portable HISTORY: 57 years-old Male Chest pain, nonspecific acute chest pain COMPARISON: 05/09/2022 TECHNIQUE: AP view of the chest FINDINGS: Cardiac mediastinal and hilar silhouettes are within normal limits. No pneumothorax, pleural effusion, airspace consolidation or overt pulmonary edema. A loop recorder device is again noted. Unchanged mild right hemidiaphragmatic elevation. Degenerative changes of the shoulders and spine. Surgical clips of the upper abdomen. Postoperative changes of the right humeral head with fusion hardware of the lumbar and cervical spine. IMPRESSION: No acute process. ACT 112: Negative or not required by law. The above report was generated using voice recognition software. It may contain grammatical, syntax or spelling errors. Electronically signed by: Faisal Saunders M.D. 11/14/2022 4:31 PM Head CTA 11/14/22 20:11 Exam(s): CTA HEAD With Contrast IV Amt: 118 ml optiray 350 EXAM: CT Angiography Head With Intravenous Contrast CLINICAL HISTORY: Reason for exam: dizziness; tinnitus. TECHNIQUE: Axial computed tomographic angiography images of the head with intravenous contrast. CTDI is 70.31 mGy and DLP is 1155.32 mGy-cm. Automated exposure control was utilized for the study. A dose lowering technique was utilized adhering to the principles of ALARA. 2D MIP reconstructed images were created and reviewed. CONTRAST: Patient received 118 ml optiray 350 of IV contrast COMPARISON: No relevant prior studies available. FINDINGS: Right internal carotid artery: No acute findings. Intracranial segment is patent with no significant stenosis. No aneurysm. Right anterior cerebral artery: Unremarkable. No occlusion or significant stenosis. No aneurysm. Right middle cerebral artery: Unremarkable. No occlusion or significant stenosis. No aneurysm. Right posterior cerebral artery: Unremarkable. No occlusion or significant stenosis. No aneurysm. Right vertebral artery: The visualized portions of the right vertebral artery are patent but small in caliber. Left internal carotid artery: No acute findings. Intracranial segment is patent with no significant stenosis. No aneurysm. Left anterior cerebral artery: Unremarkable. No occlusion or significant stenosis. No aneurysm. Left middle cerebral artery: Unremarkable. No occlusion or significant stenosis. No aneurysm. Left posterior cerebral artery: Unremarkable. No occlusion or significant stenosis. No aneurysm. Left vertebral artery: Unremarkable as visualized. Basilar artery: Unremarkable. No occlusion or significant stenosis. No aneurysm. Other findings: Please see separate dictation for details of the extracranial circulation. IMPRESSION: No acute findings in the arteries of the head/brain. Electronically signed by: Dwight Buck MD 11/14/22 21:24 PM Neck CTA 11/14/22 20:11 CR Exam(s): CTA NECK With Contrast IV Amt: 118 ml optiray 350 EXAM: CT Angiography Neck With Intravenous Contrast CLINICAL HISTORY: Reason for exam: dizziness; tinnitus. TECHNIQUE: Routine carotid CT angiography protocol was performed with intravenous contrast. NASCET criteria using the distal ICAs for comparison were used for evaluation of stenoses. CTDI is 70.31 mGy and DLP is 1155.32 mGy-cm. Automated exposure control was utilized for the study. A dose lowering technique was utilized adhering to the principles of ALARA. MIP reconstructed images were created and reviewed. CONTRAST: Patient received 118 ml optiray 350 of IV contrast COMPARISON: None. FINDINGS: VASCULATURE: Right common carotid artery: Unremarkable. No occlusion or significant stenosis. No dissection. Right internal carotid artery: Unremarkable. Extracranial segment is patent with no occlusion or significant stenosis. No dissection. Right external carotid artery: Unremarkable. No occlusion. Right vertebral artery: Occlusion of the right vertebral artery at its origin with retrograde reconstitution of the vertebral artery at the level of the hyoid which eventually reoccludes at the level of the mandibular angle. There is reconstitution of the distal vertebral artery via collaterals and the [place]. . Left common carotid artery: Unremarkable. No occlusion or significant stenosis. No dissection. Left internal carotid artery: Unremarkable. Extracranial segment is patent with no occlusion or significant stenosis. No dissection. Left external carotid artery: Unremarkable. No occlusion. Left vertebral artery: Left vertebral artery is widely patent. No occlusion or significant stenosis. No dissection. NECK: Bones/joints: Unremarkable. Soft tissues: Unremarkable. Lung apices: Clear. CAROTID STENOSIS REFERENCE USING NASCET CRITERIA: % ICA stenosis = (1 - narrowest ICA diameter/diameter of distal cervical ICA) x 100. Mild - <50% stenosis. Moderate - 50-69% stenosis. Severe - 70-94% stenosis. Near occlusion - 95-99% stenosis. Occluded - 100% stenosis. IMPRESSION: Occlusion of the right vertebral artery from its origin with short segments of reconstitution as described above. Communications: Call Doctor Acute arterial occlusion/ critical stenosis Electronically signed by: Dwight Buck MD 11/14/22 21:[address] 11/14/22 20:27 Exam(s): CT HEAD Without Contrast EXAM: CT Head Without Intravenous Contrast CLINICAL HISTORY: Reason for exam: dizziness; tinnitus. TECHNIQUE: Axial computed tomography images of the head/brain without intravenous contrast. CTDI is 38.03 mGy and DLP is 624.41 mGy-cm. Automated exposure control was utilized for the study. A dose lowering technique was utilized adhering to the principles of ALARA. COMPARISON: No relevant prior studies available. FINDINGS: Brain: Unremarkable. No hemorrhage. No significant white matter disease. No edema. Ventricles: Unremarkable. No ventriculomegaly. Bones/joints: Unremarkable. No acute fracture. Soft tissues: Unremarkable. Sinuses: Unremarkable as visualized. No acute sinusitis. Mastoid air cells: Unremarkable as visualized. No mastoid effusion. IMPRESSION: Normal head/brain CT. Electronically signed by: Dwight Buck MD 11/14/22 21:12 PM ECG Additional Comments: EKG per my interpretation reveals normal sinus rhythm at 67 bpm, WA = 160, QRS = 74, QTc = 433, no acute ischemic changes PG Care Time/CCT Total # of Minutes Spent Total Time Spent with Patient: Total time spent is greater than 50% in coordination of care (as documented) at patient's floor/unit and/or counseling patient: Coding Level of Care Code 45605 INT INP/OBS CARE 2/55MIN Diagnoses Vertigo R42 Obstructive sleep apnea G47.33 Hypertension I10 Hyperlipidemia E78.5
[2022-11-15] MEDS ORDERED: GLUCAGON FOR INJ 1 MG VIAL SQ PRN (01:43)
[2022-11-15] MEDS ORDERED: GLUCOSE 10 TAB/TUBE PO PRN (01:43)
[2022-11-15] MEDS ORDERED: LORazepam 2 MG/1 ML VIAL IV PRN (01:43)
[2022-11-15] MEDS ORDERED: DEXTROSE 50% 50 ML SYRINGE IV PRN (01:43)
[2022-11-15] MEDS ORDERED: BACLOFEN 10 MG TAB PO PRN (01:43)
[2022-11-15] MEDS ORDERED: PROMETHAZINE HCL 25 MG TAB PO PRN (01:43)
[2022-11-15] MEDS ORDERED: ALBUTEROL HFA 8 GM INHALER INH PRN (01:43)
[2022-11-15] MEDS ORDERED: CARBOHYDRATES FOR HYPOGLYCEMIA PO PRN (01:43)
[2022-11-15] MEDS ORDERED: HYDROCODONE/ACETAMINOPHEN 7.5/325MG TAB PO PRN (01:43)
[2022-11-15] MEDS ORDERED: GLUCOSE 40% GEL 15 GM TUBE PO PRN (01:43)
[2022-11-15] MEDS ORDERED: LORazepam 0.5 MG TAB PO PRN (01:43)
[2022-11-15] MEDS ORDERED: ACETAMINOPHEN 325 MG TAB PO PRN (01:43)
[2022-11-15 06:09] LABS: Hematocrit (blood only) 42.3 % (42.0-52.0); Hemoglobin 14.7 g/dl (14.0-18.0); Mean Corpuscular Hemoglobin 31.7 pg (25.0-34.0); Mean Corpuscular Hgb Conc 34.8 g/dL (32.0-36.0); Mean Corpuscular Volume 91.2 fL (80.0-100.0); Mean Platelet Volume 9.5 fL (9.4-12.4); Platelet Count 273 K/uL (130-400); RDW Coefficient of Variation 13.3 % (11.5-14.5); RDW Standard Deviation 43.9 fL (36.4-46.3); Red Blood Count 4.64 M/uL (4.70-6.10)
--- NOTE | 2022-11-15 06:11 | Electrocardiogram Report ---
Test Reason : Blood Pressure : / mmHG Vent. Rate : 067 BPM Atrial Rate : 067 BPM P-R Int : 160 ms QRS Dur : 074 ms QT Int : 410 ms P-R-T Axes : 050 -15 011 degrees QTc Int : 433 ms Normal sinus rhythm Normal ECG When compared with ECG of 09-MAY-2022 12:35, Criteria for Inferior infarct are no longer Present Confirmed by Nba Nathan ([id number]) on 11/15/2022 6:11:37 AM Referred By: REFERRED SELF Confirmed By:Nba Nathan
[2022-11-15 07:14] LABS: BUN Creatinine Ratio 12.4 (10-20); Calcium 8.9 mg/dl (8.6-10.3); Chol HDL Ratio 4.9 (0-5); Creatinine Clr Calc Pharmacy 105.2 ml/min; Est GFR (African American) 92.2 ml/min; Est GFR (Non-African American) 79.5 ml/min; Potassium 3.9 mmol/L (3.5-5.1)
[2022-11-15 07:28] LABS: Estimated Average Glucose 114 mg/dl; Hemoglobin A1C 5.6 % (4.5-5.6)
[2022-11-15] MEDS: INSULIN ASPART PER UNIT CHARGE SC SCH ×4 (09:01→21:55)
[2022-11-15] MEDS: LORATADINE 10 MG TAB PO SCH (09:02)
[2022-11-15] MEDS: FAMOTIDINE 20 MG TAB PO SCH ×2 (09:02→21:42)
[2022-11-15] MEDS: FUROSEMIDE 20 MG TAB PO SCH (09:02)
[2022-11-15] MEDS: MECLIZINE HCL 25 MG TAB PO SCH ×3 (09:03→21:42)
[2022-11-15] MEDS: ASPIRIN 81 MG ECTAB PO SCH (09:03)
[2022-11-15] MEDS: DOCUSATE SODIUM 100 MG CAP PO SCH ×2 (09:03→21:46)
[2022-11-15] MEDS: CLOPIDOGREL BISULFATE 75 MG TAB PO SCH (09:04)
[2022-11-15] MEDS: AZELASTINE HCL 0.1% NASAL 200 SPRAYS/27,400 MCG BTL SCH ×2 (09:07→21:41)
[2022-11-15] MEDS: methylPREDNISolone 40 MG in SYRINGE 0 ML IV SCH ×2 (14:08→21:43)
[2022-11-15] MEDS: LORazepam 0.5 MG TAB PO SCH ×2 (14:10→21:46)
[2022-11-15] MEDS ORDERED: amLODIPine BESYLATE 5 MG TAB PO ONE (15:26)
--- NOTE | 2022-11-15 15:26 | Hospitalist Progress Note ---
Date of Service November 15, 2022 Assessment & Plan (1) Vertigo: Plan: Current symptoms appear to be recurrence of benign positional vertigo. He is now on scheduled meclizine and lorazepam. Solu-Medrol has been added. Brain MRI scan canceled due to question of compatibility with his implanted loop recorder. 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 No intervention needed at this time. (2) Obstructive sleep apnea: Plan: Stable. CPAP nightly (3) Hypertension: Plan: Stable. Continue current medical management (4) Hyperlipidemia: Plan: Stable. Continue atorvastatin Plan Anticipate discharge back to home when his vertigo symptoms edenilson Admission and Anticipated Discharge Date Admission Date: November 14, 2022 Subjective Alert and oriented. His symptoms are consistent with benign positional vertigo. Brain MRI scan canceled due to uncertainty whether the implanted loop recorder is MRI compatible. He is now on scheduled lorazepam, meclizine. Solu-Medrol has been started. Review of Systems Review of Systems: Constitutional-no fever or chills ENT-no blurred vision, no double vision, no epistaxis, no sore throat Respiratory-no cough, no wheezing, no shortness of breath Cardiac-no palpitations, no chest pain, no syncope GI-no nausea, vomiting, diarrhea, melena, hematochezia -no urinary retention, no urinary incontinence, no dysuria, no hematuria Musculoskeletal-no joint pain, no muscle tenderness Skin-no bruising, no rashes, no pruritus Neuro-no isolated weakness, no paresthesia. Vertigo symptoms with movement Psych-no depression, no anxiety Physical Exam 2 Physical Exam: General-alert and oriented x3, no fevers, no chills HEENT-head atraumatic and normocephalic, pupils equal and reactive to light, extraocular muscles intact Neck-no lymphadenopathy or thyromegaly, trachea midline Chest-clear to auscultation percussion. No rales, wheezing or rhonchi Cardiac-regular rate and rhythm, normal S1 and S2 Abdomen-normal bowel sounds, nontender, no hepatosplenomegaly Extremities-no cyanosis, clubbing, or edema Neuro-cranial nerves II through XII intact, motor and sensory function within normal limits, strength symmetrical , no focal deficits. Vertigo symptoms with any movement Psych-normal affect, normal mood Results & Data Results & Data Vital Signs (Past 12 Hours) Vital Signs Temp Pulse Pulse Resp BP Pulse Ox O2 Del Method 11/15/22 14:53 70 11/15/22 11:54 36.8 C 67 20 147/98 H 96 Room Air 11/15/22 07:42 57 L 11/15/22 07:30 36.8 C 67 18 132/76 96 Room Air 11/15/22 04:18 61 11/15/22 03:23 36.5 C 63 14 127/82 97 Room Air Laboratory Results 11/15/22 05:20 11/15/22 05:20 PG Care Time/CCT Total # of Minutes Spent Total Time Spent with Patient: Total time spent is greater than 50% in coordination of care (as documented) at patient's floor/unit and/or counseling patient: Coding Level of Care Code 01813 SUB INP/OBS CARE 3/50MIN Diagnoses Vertigo R42 Obstructive sleep apnea G47.33 Hypertension I10 Hyperlipidemia E78.5
[2022-11-15] MEDS: LOSARTAN POTASSIUM 50 MG TAB PO SCH (16:11)
--- NOTE | 2022-11-15 19:33 | XCELERA ---
[id number]\[id number]
[2022-11-15] MEDS: ATORVASTATIN 40 MG TAB PO SCH (21:40)
[2022-11-16] MEDS: methylPREDNISolone 40 MG in SYRINGE 0 ML IV SCH ×3 (05:11→21:12)
[2022-11-16] MEDS: ASPIRIN 81 MG ECTAB PO SCH (07:53)
[2022-11-16] MEDS: CLOPIDOGREL BISULFATE 75 MG TAB PO SCH (07:54)
[2022-11-16] MEDS: LORATADINE 10 MG TAB PO SCH (07:54)
[2022-11-16] MEDS: FUROSEMIDE 20 MG TAB PO SCH (07:54)
[2022-11-16] MEDS: LOSARTAN POTASSIUM 50 MG TAB PO SCH (07:54)
[2022-11-16] MEDS: METOPROLOL SUCC 25MG EXT REL TAB PO SCH (07:55)
[2022-11-16] MEDS: MECLIZINE HCL 25 MG TAB PO SCH ×3 (07:55→21:12)
[2022-11-16] MEDS: AZELASTINE HCL 0.1% NASAL 200 SPRAYS/27,400 MCG BTL SCH ×2 (07:56→21:12)
[2022-11-16] MEDS: amLODIPine BESYLATE 5 MG TAB PO SCH (07:56)
[2022-11-16] MEDS: FAMOTIDINE 20 MG TAB PO SCH ×2 (07:56→21:12)
[2022-11-16] MEDS: LORazepam 0.5 MG TAB PO SCH ×3 (08:01→21:12)
[2022-11-16] MEDS: DOCUSATE SODIUM 100 MG CAP PO SCH ×2 (08:01→21:12)
[2022-11-16] MEDS: INSULIN ASPART PER UNIT CHARGE SC SCH ×4 (08:48→21:12)
--- NOTE | 2022-11-16 11:35 | Hospitalist Progress Note ---
Date of Service November 16, 2022 Assessment & Plan (1) Vertigo: Plan: Current symptoms appear to be recurrence of benign positional vertigo. He is now on scheduled meclizine, methylprednisolone, and lorazepam. Brain MRI scan canceled due to question of compatibility with his implanted loop recorder. 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 No intervention needed at this time. (2) Obstructive sleep apnea: Plan: Stable. CPAP nightly (3) Hypertension: Plan: Stable. Continue current medical management (4) Hyperlipidemia: Plan: Stable. Continue atorvastatin Plan Anticipate discharge back to home when his vertigo symptoms improved. Hopefully tomorrow, November 17 Admission and Anticipated Discharge Date Admission Date: November 16, 2022 Subjective Improved only slightly. Still too much vertigo for him to go home. Hopefully he will be able to go home tomorrow, November 17. Continue current treatment with parenteral steroids, oral meclizine, oral benzodiazepine Review of Systems Review of Systems: Constitutional-no fever or chills ENT-no blurred vision, no double vision, no epistaxis, no sore throat Respiratory-no cough, no wheezing, no shortness of breath Cardiac-no palpitations, no chest pain, no syncope GI-no nausea, vomiting, diarrhea, melena, hematochezia -no urinary retention, no urinary incontinence, no dysuria, no hematuria Musculoskeletal-no joint pain, no muscle tenderness Skin-no bruising, no rashes, no pruritus Neuro-no isolated weakness, no paresthesia. Vertigo symptoms with movement Psych-no depression, no anxiety Physical Exam Physical Exam: General-alert and oriented x3, no fevers, no chills HEENT-head atraumatic and normocephalic, pupils equal and reactive to light, extraocular muscles intact Neck-no lymphadenopathy or thyromegaly, trachea midline Chest-clear to auscultation percussion. No rales, wheezing or rhonchi Cardiac-regular rate and rhythm, normal S1 and S2 Abdomen-normal bowel sounds, nontender, no hepatosplenomegaly Extremities-no cyanosis, clubbing, or edema Neuro-cranial nerves II through XII intact, motor and sensory function within normal limits, strength symmetrical , no focal deficits. Vertigo symptoms with any movement Psych-normal affect, normal mood Results & Data Results & Data Vital Signs (Past 12 Hours) Vital Signs Temp Pulse Pulse Resp BP Pulse Ox O2 Del Method 11/16/22 07:59 36.4 C L 77 19 143/85 H 93 Room Air 11/16/22 07:08 70 11/16/22 04:54 36.7 C 67 20 134/78 93 Room Air, CPAP 11/16/22 02:32 75 22 93 11/16/22 00:32 78 FiO2 11/16/22 07:59 11/16/22 07:08 11/16/22 04:54 11/16/22 02:32 21 11/16/22 00:32 Laboratory Results 11/15/22 05:20 11/15/22 05:20 PG Care Time/CCT Total # of Minutes Spent Total Time Spent with Patient: Total time spent is greater than 50% in coordination of care (as documented) at patient's floor/unit and/or counseling patient: Coding Level of Care Code 54903 SUB INP/OBS CARE 2/35MIN Diagnoses Vertigo R42 Obstructive sleep apnea G47.33 Hypertension I10 Hyperlipidemia E78.5
[2022-11-16] MEDS: ATORVASTATIN 40 MG TAB PO SCH (21:11)
[2022-11-17] MEDS: methylPREDNISolone 40 MG in SYRINGE 0 ML IV SCH ×3 (05:02→21:21)
[2022-11-17] MEDS: FAMOTIDINE 20 MG TAB PO SCH ×2 (08:33→21:22)
[2022-11-17] MEDS: METOPROLOL SUCC 25MG EXT REL TAB PO SCH (08:33)
[2022-11-17] MEDS: amLODIPine BESYLATE 5 MG TAB PO SCH (08:33)
[2022-11-17] MEDS: MECLIZINE HCL 25 MG TAB PO SCH ×3 (08:33→21:23)
[2022-11-17] MEDS: LOSARTAN POTASSIUM 50 MG TAB PO SCH (08:34)
[2022-11-17] MEDS: ASPIRIN 81 MG ECTAB PO SCH (08:34)
[2022-11-17] MEDS: LORATADINE 10 MG TAB PO SCH (08:34)
[2022-11-17] MEDS: FUROSEMIDE 20 MG TAB PO SCH (08:34)
[2022-11-17] MEDS: CLOPIDOGREL BISULFATE 75 MG TAB PO SCH (08:35)
[2022-11-17] MEDS: AZELASTINE HCL 0.1% NASAL 200 SPRAYS/27,400 MCG BTL SCH ×2 (08:35→21:24)
[2022-11-17] MEDS: DOCUSATE SODIUM 100 MG CAP PO SCH ×2 (08:42→22:10)
[2022-11-17] MEDS: LORazepam 0.5 MG TAB PO SCH ×3 (08:42→21:22)
[2022-11-17] MEDS: INSULIN ASPART PER UNIT CHARGE SC SCH ×4 (08:49→21:24)
--- NOTE | 2022-11-17 12:31 | CT Scan Report ---
CT OF THE HEAD WITHOUT CONTRAST CLINICAL HISTORY: Vertigo. COMPARISON STUDY: Head CTs September 02, 2017 and November 14, 2022. CT DOSE: 547.75 mGy.cm TECHNIQUE: Helical axial images of the head were obtained without IV contrast. Automated exposure con trol was utilized for the study. A dose lowering technique was utilized adhering to the principles o f ALARA. FINDINGS: No acute intracranial hemorrhage, midline shift or mass effect is present. The ventricular system is unremarkable. There is fullness at the foramen magnum. No extra-axial collections are prese nt. There are no findings to suggest acute dural sinus thrombosis or acute territorial infarct. No si gnificant calvarial abnormalities are present. Visualized portions of the sinuses and mastoid air alayna ls are clear. IMPRESSION: 1. No acute intracranial findings. 2. Fullness at the foramen magnum. This is chronic and of questionable significance however a Chiari I malformation cannot be excluded. ACT 112: Negative or not required by law. Electronically signed by: Rakan Verdugo M.D. 11/17/2022 12:30 PM
--- NOTE | 2022-11-17 15:23 | Hospitalist Progress Note ---
Date of Service November 17, 2022 Assessment & Plan (1) Vertigo: Plan: Current symptoms appear to be recurrence of benign positional vertigo. He is now on scheduled meclizine, methylprednisolone, and lorazepam. He is improving. Head CT scan #2 done today, November 17, remains negative for CVA. 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 No intervention needed at this time. (2) Obstructive sleep apnea: Plan: Stable. CPAP nightly (3) Hypertension: Plan: Stable. Continue current medical management (4) Hyperlipidemia: Plan: Stable. Continue atorvastatin Plan Hopeful discharge to home tomorrow, November 18 Admission and Anticipated Discharge Date Admission Date: November 16, 2022 Subjective Definitely improved but not asymptomatic yet. Head CT scan #2 was done today, November 17, and remains negative for ischemic injury. 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 We will continue intravenous Solu- Medrol and scheduled oral meclizine and lorazepam. Hopefully he can go home tomorrow, November 18 Review of Systems Review of Systems: Constitutional-no fever or chills ENT-no blurred vision, no double vision, no epistaxis, no sore throat Respiratory-no cough, no wheezing, no shortness of breath Cardiac-no palpitations, no chest pain, no syncope GI-no nausea, vomiting, diarrhea, melena, hematochezia -no urinary retention, no urinary incontinence, no dysuria, no hematuria Musculoskeletal-no joint pain, no muscle tenderness Skin-no bruising, no rashes, no pruritus Neuro-no isolated weakness, no paresthesia. Vertigo symptoms with movement Psych-no depression, no anxiety Physical Exam Physical Exam: General-alert and oriented x3, no fevers, no chills HEENT-head atraumatic and normocephalic, pupils equal and reactive to light, extraocular muscles intact Neck-no lymphadenopathy or thyromegaly, trachea midline Chest-clear to auscultation percussion. No rales, wheezing or rhonchi Cardiac-regular rate and rhythm, normal S1 and S2 Abdomen-normal bowel sounds, nontender, no hepatosplenomegaly Extremities-no cyanosis, clubbing, or edema Neuro-cranial nerves II through XII intact, motor and sensory function within normal limits, strength symmetrical , no focal deficits. Vertigo symptoms with any movement have improved Psych-normal affect, normal mood Results & Data Results & Data Vital Signs (Past 12 Hours) Vital Signs Temp Pulse Pulse Resp BP Pulse Ox O2 Del Method 11/17/22 12:08 36.5 C 63 20 132/89 95 Room Air 11/17/22 08:00 75 11/17/22 08:37 36.7 C 65 20 133/78 96 Room Air 11/17/22 03:24 74 15 90 FiO2 11/17/22 12:08 11/17/22 08:00 11/17/22 08:37 11/17/22 03:24 21 Laboratory Results 11/15/22 05:20 11/15/22 05:20 PG Care Time/CCT Total # of Minutes Spent Total Time Spent with Patient: Total time spent is greater than 50% in coordination of care (as documented) at patient's floor/unit and/or counseling patient: Coding Level of Care Code 63626 SUB INP/OBS CARE 2/35MIN Diagnoses Vertigo R42 Obstructive sleep apnea G47.33 Hypertension I10 Hyperlipidemia E78.5
[2022-11-17] MEDS: ATORVASTATIN 40 MG TAB PO SCH (22:10)
[2022-11-18] MEDS: methylPREDNISolone 40 MG in SYRINGE 0 ML IV SCH (05:54)
[2022-11-18] MEDS: INSULIN ASPART PER UNIT CHARGE SC SCH (09:06)
[2022-11-18] MEDS: amLODIPine BESYLATE 5 MG TAB PO SCH (09:21)
[2022-11-18] MEDS: ASPIRIN 81 MG ECTAB PO SCH (09:22)
[2022-11-18] MEDS: AZELASTINE HCL 0.1% NASAL 200 SPRAYS/27,400 MCG BTL SCH (09:24)
[2022-11-18] MEDS: CLOPIDOGREL BISULFATE 75 MG TAB PO SCH (09:25)
[2022-11-18] MEDS: DOCUSATE SODIUM 100 MG CAP PO SCH (09:26)
[2022-11-18] MEDS: FUROSEMIDE 20 MG TAB PO SCH (09:27)
[2022-11-18] MEDS: FAMOTIDINE 20 MG TAB PO SCH (09:27)
[2022-11-18] MEDS: LORATADINE 10 MG TAB PO SCH (09:28)
[2022-11-18] MEDS: LORazepam 0.5 MG TAB PO SCH (09:29)
[2022-11-18] MEDS: LOSARTAN POTASSIUM 50 MG TAB PO SCH (09:31)
[2022-11-18] MEDS: MECLIZINE HCL 25 MG TAB PO SCH (09:32)
[2022-11-18] MEDS: METOPROLOL SUCC 25MG EXT REL TAB PO SCH (09:32)
[2022-11-18 11:37] VITALS: BP 152/91; TEMP 97.9; O2SAT 97
--- NOTE | 2022-11-18 11:47 | Discharge Summary ---
Date of Service November 18, 2022 Admission HPI Per Admitting Provider Dylon Conner is a 57yo male with history of Meniere's disease of the left ear with intermittent vertigo/tinnitus and hearing loss presenting with persistent dizziness/vertigo. Patient has had episodes of dizziness over the last several days, mainly with getting up and changing positions. Today. His dizziness became more severe and persistent throughout the day. He also had blurry vision which is atypical for him. His symptoms started this morning acutely around 07 30 when he was in the shower getting ready for work. He became acutely dizzy and nearly fell. He laid down in bed and is unsure if he passed out or fell asleep but he woke up around 11:00. He got out of bed and started to walk around, ate something then again had abrupt onset of severe vertigo. At this time he developed some mild left-si ded chest pain as well as pain in his left neck. His blurry vision has since resolved but he still has persistent dizziness specifically worsened with turning his head. He cannot move his eyes without triggering vertigo. He has ongoing tinnitus for the last 2 to 3 days. He has been taking Ativan at home without relief. He did take some meclizine today as well which gave him a small amount of relief. Additionally he reports to mild fever and shortness of breath. Denies palpitations, vomiting, diarrhea. No visual loss or amaurosis fugax. No additional complaints Case was discussed with telestroke neurologist who recommended MRI for possible cerebellar stroke. Principal Diagnosis Benign positional vertigo, right vertebral arterial occlusion of undetermined duration Discharge Exam General-alert and oriented x3, no fevers, no chills HEENT-head atraumatic and normocephalic, pupils equal and reactive to light, extraocular muscles intact Neck-no lymphadenopathy or thyromegaly, trachea midline Chest-clear to auscultation percussion. No rales, wheezing or rhonchi Cardiac-regular rate and rhythm, normal S1 and S2 Abdomen-normal bowel sounds, nontender, no hepatosplenomegaly Extremities-no cyanosis, clubbing, or edema Neuro-cranial nerves II through XII intact, motor and sensory function within normal limits, strength symmetrical , no focal deficits. Vertigo symptoms with any movement have improved Psych-normal affect, normal mood Discharge Data Allergies Allergy/AdvReac Type Severity Reaction Status Date / Time naproxen Allergy Severe Diffuse Verified 11/14/22 20:36 joint swelling, difficulty ambulating amoxicillin Allergy Unknown Rash Verified 11/14/22 20:36 clavulanic acid Allergy Unknown Rash Verified 11/14/22 20:36 Consultations 11/14/22 22:25 ED Decision to Admit Stat Ordered Studies 11/14/22 20:11 CTA head w con [CT angio head w con] Stat CTA neck with con [CT angio neck with con] Stat 11/14/22 20:27 CT head/brain wo con Stat 11/17/22 11:[address] [CT head/brain wo con] Urgent Hospital Course (1) Vertigo: Current symptoms appear to be recurrence of benign positional vertigo. He has been treated with scheduled meclizine, methylprednisolone, and lorazepam. He is improving. Head CT scan #2 done on November 17, remains negative for CVA. 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 No intervention needed at this time. (2) Obstructive sleep apnea: Stable. CPAP nightly (3) Hypertension: Stable. Continue current medical management (4) Hyperlipidemia: Stable. Continue atorvastatin Plan Home today, November 18 . He will continue meclizine and lorazepam as he was taking before along with a tapering dose of prednisone Total Time Total Time Spent Total Time Spent (In Minutes): 45-minute Discharge Plan Discharge Items Patient Disposition: Home - Self-Care Reason For Visit: VERTIGO, CHEST DISCOMFORT Discharge Diagnosis: Benign positional vertigo, occlusion of right vertebral artery of undetermined duration Non-emergency contact: Primary Care Provider Call non-emergency contact if: you have any medication questions and your symptoms worsen Follow-up/Referrals: Aryan Benson [Primary Care Provider] - Diet: Carb Consistent or DM2 and Heart Healthy Addtl Attending Provider Instructions: Take meclizine and lorazepam as before. Take prednisone in a tapering dose fashion as directed Pending Studies at Discharge: No Stand-Alone Forms: [employer], Work/School Release, Smoking Cessation Medications and DC Order Prescriptions: New prednisone 10 mg tablet See Rx Instructions .ROUTE .COMPLEX Qty: 12 0RF Rx Instructions: 10 mg orally 3 times a day for 2 days, then 10 mg twice a day for 2 days, then 10 mg once a day for 2 days, then stop Continued azelastine 137 mcg (0.1 %) aerosol,spray 2 spray intranasal BID Qty: 30 6RF Rx Instructions: administer into each nostril potassium chloride 20 mEq tablet extended release 20 meq PO BID losartan 100 mg tablet 100 mg PO QAM docusate sodium [DOK] 100 mg capsule 100 mg PO BID atorvastatin 80 mg tablet 80 mg PO QPM loratadine 10 mg tablet 10 mg PO QAM amlodipine 10 mg tablet 10 mg PO QPM bisacodyl 5 mg tablet 5 mg PO BID meclizine 25 mg tablet 25 mg PO TID PRN (Reason: Vertigo) lorazepam 0.5 mg tablet 0.5 mg PO TID PRN (Reason: Vertigo) albuterol sulfate [ProAir HFA] 90 mcg/actuation HFA aerosol inhaler 2 puffs INH Q6H PRN (Reason: Shortness Of Breath) clopidogrel 75 mg tablet 75 mg PO QAM aspirin 81 mg tablet,delayed release (DR/EC) 81 mg PO QAM promethazine 25 mg tablet 25 mg PO Q6H PRN (Reason: Vertigo) cholecalciferol (vitamin D3) 50 mcg (2,000 unit) capsule 50 mcg PO BID baclofen 10 mg tablet 10 mg PO QAM PRN (Reason: Pain) furosemide [Lasix] 20 mg tablet 20 mg PO QAM metoprolol succinate 25 mg Tablet Extended Release 24 Hr 25 mg PO BID hydrocodone-acetaminophen 7.5-325 mg tablet 1 tab PO BID PRN (Reason: Pain) famotidine 20 mg tablet 20 mg PO BID Ozempic 0.25 mg or 0.5 mg (2 mg/3 mL) pen injector 2 mg SUBCUT WK Rx Instructions: take this med every Monday Farxiga 10 mg tablet 10 mg PO DAILY Discharge Orders: Discharge Order (Routine); Ordered 11/18/22 Ordered By: Nura Corona Admission Data Admit Date/Time: 11/16/22 11:08 Attending Provider: Nura Corona Admit Provider: Brianne Boss Primary Care Provider: Aryan Benson Other Providers: Brianne Boss Coding Level of Care Code 96907 INP/OBS DISCH >30 MIN Diagnoses Vertigo R42 Obstructive sleep apnea G47.33 Hypertension I10 Hyperlipidemia E78.5
[2022-11-18 12:05] VITALS: PULSE 67
== END 2022-11-18 12:55 | disposition home or self-care (01) | DRG 149 ==
LOC: ED 13:48 → EDINP 13:48 → SUATTDRO 22:50 → 2N 11-15 02:06